=== PATIENT | male | born 1950 | race Hispanic/Latino ===

== ENCOUNTER 2017-10-27 06:34 | Day surgery (SDC) | payer BC ==
[2017-10-26 15:49] VITALS: BP 137/83
[~2017-10-27] VITALS: Ht 175.3 cm; Wt 102.4 kg
[2017-10-27] VITALS (17 sets, daily range): BP systolic 98–153; BP diastolic 56–100
[2017-10-27] MEDS: CEFAZOLIN SODIUM 1 GM VIAL IVP SCH ×2 (06:30→08:35)
[~2017-10-27 06:34] MED LIST: ALFU10 PO; ATOR10TA69 PO; METO-391 PO; OLME20TA10 PO; PANT40TA25 PO; TRAM50TA4 PO
[2017-10-27] MEDS ORDERED: MIDAZOLAM HCL 1 MG/ML 2ML VIAL ONE (06:49)
[2017-10-27] MEDS ORDERED: LIDOCAINE PF 2% 5ML ABBOJECT ONE (06:49)
[2017-10-27] MEDS ORDERED: PROPOFOL 10 MG/ML 20ML VIAL IV ONE ×2 (06:49→08:50)
[2017-10-27] MEDS ORDERED: NEOSTIGMINE 5MG/5ML SYR IV ONE (06:49)
[2017-10-27] MEDS ORDERED: GLYCOPYRROLATE 0.2 MG/ML 5 ML VIAL ONE ×2 (06:49→09:08)
[2017-10-27] MEDS ORDERED: DEXAMETHASONE SOD PHOSPHATE 10MG/ML 1ML VIAL ONE (06:49)
[2017-10-27] MEDS ORDERED: FENTANYL CITRATE PF 50 MCG/1 ML 2ML VIAL ONE ×2 (06:49→08:49)
[2017-10-27] MEDS ORDERED: LACTATED RINGERS 1000ML 1,000 ML IV ONE (07:05)
[2017-10-27] MEDS ORDERED: CALDOLOR 800MG+NS 250ML 250 ML IV ONE (07:54)
[2017-10-27] MEDS ORDERED: EPHEDRINE SULFATE 50 MG/ML AMPULE ONE (08:34)
[2017-10-27] MEDS ORDERED: ROCURONIUM BROMIDE 10MG/1ML 5ML VL ONE (09:07)
[2017-10-27] MEDS ORDERED: METOCLOPRAMIDE 10 MG/2 ML VIAL ONE (09:07)
[2017-10-27] MEDS ORDERED: ONDANSETRON HCL MDV 20ML 2 MG/ML VIAL ONE (09:07)
[2017-10-27] MEDS ORDERED: SUCCINYLCHOLINE CHLORIDE 20 MG/ML 10 ML VIAL ONE ×2 (09:07)
[2017-10-27] MEDS ORDERED: LIDOCAINE HCL 4% LTA SOL 4 ML VIAL ONE (09:08)
[2017-10-27] MEDS ORDERED: PHENYLEPHRINE HCL 10 MG/ML 1ML VIAL IV ONE (09:08)
[2017-10-27] MEDS ORDERED: MEPERIDINE-PF 25 MG/ML SYG ONE ×2 (09:35→09:49)
== END 2017-10-27 11:05 | disposition home or self-care (01) ==
LOC: DAH 06:34
PROVIDERS: ATTEND Orthopaedic Surgery
DX: M23.222 Derangement of posterior horn of medial meniscus due to old tear or injury, left knee (principal); M67.52 Plica syndrome, left knee; M22.42 Chondromalacia patellae, left knee; M17.12 Unilateral primary osteoarthritis, left knee; Z79.82 Long term (current) use of aspirin; Z79.899 Other long term (current) drug therapy; I10 Essential (primary) hypertension; G47.30 Sleep apnea, unspecified; E78.00 Pure hypercholesterolemia, unspecified; F41.8 Other specified anxiety disorders; K21.9 Gastro-esophageal reflux disease without esophagitis; Z90.49 Acquired absence of other specified parts of digestive tract; I25.10 Atherosclerotic heart disease of native coronary artery without angina pectoris; Z98.890 Other specified postprocedural states
CPT/HCPCS: 29881; A4218; A4606; A4649 ×2; A4930; A6223; J0330 ×2; J0690; J1100; J1741; J2001; J2175 ×2; J2250; J2370; J2704 ×2; J2710; J2765; J3010 ×2; J3490 ×4; J7030; J7120

== ENCOUNTER → 2020-12-28 | Outpatient (CLI) | payer MEDICARE ==
[~2020-12-28] MED LIST changes: +AMLO-257 PO; +DULO60CA64 PO; +ESCI-8 PO; +GABA-529 PO; +LINA290C PO; +MELO-108 PO; +MONT10TA32 PO; -PANT40TA25 PO; +PANT40TA54 PO; +TOPI50TA PO; -TRAM50TA4 PO; +TRAZ-185 PO
== END | disposition home or self-care (01) ==
LOC: RAH 07:23
PROVIDERS: ATTEND Physical Medicine & Rehabilitation
DX: M47.26 Other spondylosis with radiculopathy, lumbar region (principal)
CPT/HCPCS: 72148

== ENCOUNTER → 2022-12-13 | Outpatient (CLI) | payer MEDICARE ==
[~2022-12-13] MED LIST changes: +MONT-39 PO; -MONT10TA32 PO; -OLME20TA10 PO; +OLME20TA73 PO
[2022-12-13 15:31] LABS: APPEARANCE BODY FLUID CLOUDY (CLEAR); COLOR,BODY FLUID YELLOW (LT YELLOW); SPECIMENTYPE,BODY FLUID SYNOVIAL; TOTAL VOLUME,BODY FLUID 60 mL
[2022-12-13 15:32] LABS: BODY FLUID RBC 1124 /cu. mm.; BODY FLUID WBC 90 /cu. mm.
[2022-12-13 16:15] LABS: BF LYMPHOCYTE 4 %; BF MONOCYTE 6 %; BF OTHER CELLS 3
[2022-12-13 19:32] LABS: CRYSTALS, SYNOVIAL FLUID None Seen
== END | disposition home or self-care (01) ==
LOC: LAB 12:41
PROVIDERS: ATTEND Nurse Practitioner
DX: M25.462 Effusion, left knee (principal)
CPT/HCPCS: 87070; 87076; 87077; 87186; 89051; 89060

== ENCOUNTER 2023-03-31 10:00 | Outpatient (CLI) | payer MEDICARE ==
[~2023-03-31] VITALS: Ht 172.7 cm; Wt 98.2 kg
[2023-03-31 11:06] LABS: APPEARANCE,URINE CLEAR (CLEAR); BILIRUBIN,URINE NEGATIVE (NEGATIVE); COLOR,URINE LIGHT-YELLOW (YELLOW); GLUCOSE, URINE (UA) NEGATIVE (NEGATIVE); KETONES,URINE NEGATIVE (NEGATIVE); LEUKOCYTE ESTERASE ,URINE NEGATIVE Leu/uL (NEGATIVE); NITRATE,URINE NEGATIVE (NEGATIVE); PH,URINE 6.5 (5.0-8.0); PROTEIN,URINE NEGATIVE (NEGATIVE); UROBILINOGEN,URINE 0.2 mg/dL (0.2-1.0)
[2023-03-31 11:07] LABS: ADD UA MICROSCOPIC YES
[2023-03-31 11:09] LABS: MUCUS,URINE RARE LPF (None Seen); SQUAMOUS EPITHELIAL CELL,UR RARE /HPF (0-2); WBC,URINE 0-1 /HPF (0-1)
[2023-03-31 11:15] LABS: INR < 0.93 (0.85-1.15); PROTHROMBIN TIME 10.7 SEC (9.6-11.6)
[2023-03-31 11:16] LABS: PARTIAL THROMBOPLASTIN TIME 27.9 SEC (26.3-35.5)
[2023-03-31 11:39] VITALS: BP 150/91; PULSE 68; RESP 16
[2023-03-31] MEDS ORDERED: GABA-529 PO (14:17)
[2023-03-31] MEDS ORDERED: TOPI50CA PO (14:17)
[2023-03-31] MEDS ORDERED: MELO-106 PO (14:17)
[2023-03-31] MEDS ORDERED: METF-444 PO (14:17)
[2023-03-31] MEDS ORDERED: LINA290C PO (14:17)
[2023-03-31] MEDS ORDERED: OLME40TA18 PO (14:17)
[2023-03-31] MEDS ORDERED: TRAZ-185 PO (14:17)
[2023-03-31] MEDS ORDERED: DULO60CA64 PO (14:17)
[2023-03-31] MEDS ORDERED: SUCR1TAB2 PO (14:17)
[2023-03-31] MEDS ORDERED: CYCL30DR OU (14:17)
[2023-03-31] MEDS ORDERED: PANT40TA54 PO (14:17)
[2023-03-31] MEDS ORDERED: METO25TA6 PO (14:17)
[2023-03-31] MEDS ORDERED: ATOR10TA69 PO (14:17)
[2023-03-31] MEDS ORDERED: DUTA0.5C37 PO (14:17)
[2023-03-31] MEDS ORDERED: FLUT16H NASAL (14:17)
[2023-04-03] VITALS (17 sets, daily range): BP systolic 107–179; BP diastolic 66–112; PULSE 62–84; RESP 10–18
[2023-04-03] MEDS ORDERED: CEFAZOLIN SODIUM 2 GM VIAL ONE (06:19)
[2023-04-03] MEDS ORDERED: 0.9%NACL 1000ML 1,000 ML IV ONE (06:19)
[2023-04-03] MEDS ORDERED: LIDOCAINE PF 100MG/5ML (2%) SYRINGE 5ML ONE (06:41)
[2023-04-03] MEDS ORDERED: DEXAMETHASONE SOD PHOSPHATE 10MG/ML 1ML VIAL ONE (06:41)
[2023-04-03] MEDS ORDERED: SUCCINYLCHOLINE CHLORIDE 20 MG/ML 10 ML VIAL ONE (06:41)
[2023-04-03] MEDS ORDERED: FENTANYL CITRATE PF 50 MCG/1 ML 5ML AMP IV ONE (06:42)
[2023-04-03] MEDS ORDERED: ONDANSETRON 4MG INJ ONE ×2 (06:42→09:56)
[2023-04-03] MEDS ORDERED: GLYCOPYRROLATE 1 MG/5 ML SYRINGE ONE (06:42)
[2023-04-03] MEDS ORDERED: PROPOFOL 10 MG/ML 20ML VIAL IV ONE (06:42)
[2023-04-03] MEDS ORDERED: NEOSTIGMINE 5MG/5ML SYR IV ONE (06:42)
[2023-04-03] MEDS ORDERED: ROCURONIUM 10MG/1ML SYR 10 MG/ML ML ONE ×2 (06:42→07:57)
[2023-04-03] MEDS ORDERED: MIDAZOLAM HCL 1 MG/ML 2ML VIAL ONE (06:55)
[2023-04-03] MEDS ORDERED: ROPIVACAINE 0.5% 5MG/ML 30ML IJ ONE (07:04)
[2023-04-03] MEDS ORDERED: MORPHINE PF 100MG/10ML AMP IV ONE (07:04)
[2023-04-03] MEDS ORDERED: TRANEXAMIC ACID 1000MG/10ML ONE (07:16)
[2023-04-03] MEDS ORDERED: EPHEDRINE SULFATE 50 MG/ML AMPULE ONE (07:51)
[2023-04-03] MEDS ORDERED: FENTANYL CITRATE PF 50 MCG/1 ML 2ML VIAL ONE (08:18)
[2023-04-03] MEDS ORDERED: BUPIVACAINE/PF 0.5% 30ML VIAL ONE (08:30)
[2023-04-03] MEDS ORDERED: KETOROLAC 30MG VIAL (30MG/ML) ONE ×2 (08:30→11:56)
[2023-04-03] MEDS ORDERED: MEPERIDINE-PF 25 MG/ML SYG ONE ×2 (09:57→10:10)
[2023-04-03] MEDS ORDERED: KETOROLAC 15MG/ML VIAL (15MG/ML) ONE (10:10)
[2023-04-03] MEDS ORDERED: HYDRALAZINE 20MG/ML VIAL ONE (10:18)
[2023-04-03] MEDS ORDERED: KETOROLAC 15MG/ML VIAL (15MG/ML) IM SCH (11:30)
[2023-04-03] MEDS ORDERED: HYDROCODONE/ACETAMINOPHEN 10/325 MG TAB PO PRN (11:30)
[2023-04-03] MEDS ORDERED: HYDROCODONE/ACETAMINOPHEN 5/325 MG TAB PO PRN (11:30)
[2023-04-20] MEDS ORDERED: 0.9% NACL 250ML 250 ML ONE (21:06)
== END 2023-03-31 12:00 | disposition home or self-care (01) ==
LOC: LAB 10:00 → DAH 10:00 → LAB 12:00 → DAH 04-03 05:51 → MERGE 04-03 05:51 → DAH 04-03 10:00 → EDSTATUS 04-03 14:05
PROVIDERS: ATTEND Student in an Organized Health Care Education/Training Program
DX: Z01.812 Encounter for preprocedural laboratory examination (principal); M17.12 Unilateral primary osteoarthritis, left knee; M25.462 Effusion, left knee; M25.562 Pain in left knee; Z79.899 Other long term (current) drug therapy
CPT/HCPCS: 36415; 81001; 82040; 82948; 84134; 85610; 85730; 86140; 87088; 87641; 93005; J0330; J0360; J1100; J1885; J2001; J2175; J2250; J2274; J2405; J2704; J2710; J2795; J3010; J3490; J7030; A4215; A4221; A4222; A4223; A4663; A5120; J0690

== ENCOUNTER 2023-04-03 05:51 | Observation (INO) | payer MEDICARE ==
[2023-04-03] VITALS (12 sets, daily range): BP systolic 128–163; BP diastolic 68–93; PULSE 75–91; RESP 18; O2SAT 96–97
[~2023-04-03] VITALS: Ht 172.7 cm; Wt 97.2 kg
[~2023-04-03 05:51] MED LIST changes: +CYCL30DR OU; +DUTA0.5C37 PO; +FLUT16H NASAL; +MELO-106 PO; +METF-444 PO; +METO25TA6 PO; +OLME40TA18 PO; +SUCR1TAB2 PO; +TOPI50CA PO
[2023-04-03] MEDS ORDERED: BUPIVACAINE/PF 0.5% 30ML VIAL INJ ONE (08:46)
[2023-04-03] MEDS ORDERED: KETOROLAC 30MG VIAL (30MG/ML) IJ ONE (08:47)
[2023-04-03] MEDS ORDERED: FERROUS FUMARATE 324 MG TABLET PO PRN (09:30)
[2023-04-03] MEDS ORDERED: ONDANSETRON 4MG INJ IVP PRN (09:30)
[2023-04-03] MEDS ORDERED: POTASSIUM CHLORIDE 20MEQ/100ML 100 ML IV PRN (09:30)
[2023-04-03] MEDS ORDERED: CALCIUM CARB 500MG PO PRN (09:30)
[2023-04-03] MEDS ORDERED: POTASSIUM CHLORIDE 10% ELIXIR 20 MEQ/15 ML UDCUP PO PRN (09:30)
[2023-04-03] MEDS: INSULIN HUMULIN R 100 UNIT/ML 3ML SQ SCH ×3 (11:30→20:09)
[2023-04-03] MEDS: KETOROLAC 15MG/ML VIAL (15MG/ML) IV SCH ×2 (12:30→17:17)
[2023-04-03] MEDS: HYDROCODONE/ACETAMINOPHEN 5/325 MG TAB PO PRN ×2 (12:35→20:06)
[2023-04-03] MEDS: 0.9%NACL 1000ML 1,000 ML IV SCH ×2 (12:47→20:09)
[2023-04-03] MEDS ORDERED: METF-444 PO ×2 (13:18)
[2023-04-03] MEDS ORDERED: METO25TA6 PO ×2 (13:27)
[2023-04-03] MEDS ORDERED: SUCR1TAB2 PO ×2 (13:27)
[2023-04-03] MEDS ORDERED: OLME40TA18 PO ×2 (13:27)
[2023-04-03] MEDS ORDERED: DUTA0.5C37 PO ×2 (13:27)
[2023-04-03] MEDS: GABAPENTIN 100 MG CAPSULE PO SCH ×2 (13:44→20:01)
[2023-04-03] MEDS: CEFAZOLIN SODIUM 2 GM VIAL IVPB SCH ×2 (17:17→22:24)
[2023-04-03] MEDS: CYCLOBENZAPRINE HCL 10 MG TABLET PO PRN (17:17)
[2023-04-03] MEDS: ATORVASTATIN 10 MG TABLET PO SCH (20:01)
[2023-04-03] MEDS: TOPIRAMATE 25 MG TABLET PO SCH (20:02)
[2023-04-03] MEDS: DOCUSATE SODIUM 100 MG CAP PO SCH (20:02)
[2023-04-03] MEDS: (Linaclotide (Linzess) 290 MCG) PO SCH (20:09)
[2023-04-03] MEDS: TRAZODONE HCL 50 MG TAB PO SCH (21:22)
[2023-04-04] VITALS (8 sets, daily range): BP systolic 143–189; BP diastolic 80–97; PULSE 77–94; RESP 18–20; O2SAT 93
[2023-04-04] MEDS: KETOROLAC 15MG/ML VIAL (15MG/ML) IV SCH (00:40)
[2023-04-04] MEDS: 0.9%NACL 1000ML 1,000 ML IV SCH (02:30)
[2023-04-04] MEDS: HYDROCODONE/ACETAMINOPHEN 5/325 MG TAB PO PRN ×3 (03:34→15:40)
[2023-04-04 03:55] LABS: HEMATOCRIT 40.6 % (42-54); MEAN CORPUSCULAR HEMOGLOBIN 30.5 pg (27.0-33.0); MEAN CORPUSCULAR HGB CONC 33.3 g/dL (32.0-36.0); MEAN CORPUSCULAR VOLUME 91.9 fL (79-99); RED BLOOD CELL COUNT(AUTO) 4.42 MIL/uL (4.50-6.20); RED CELL DISTRIBUTION WIDTH 13.1 % (11.0-15.5); WHITE BLOOD COUNT (AUTO) 14.9 K/uL (4.8-10.8)
[2023-04-04 04:10] LABS: POTASSIUM 3.4 mmol/L (3.5-5.1)
[2023-04-04] MEDS: KCL 20 MEQ ERTAB PO PRN ×2 (04:45→08:38)
[2023-04-04] MEDS: INSULIN HUMULIN R 100 UNIT/ML 3ML SQ SCH ×4 (05:28→20:46)
[2023-04-04] MEDS: CYCLOBENZAPRINE HCL 10 MG TABLET PO PRN ×2 (06:44→17:17)
[2023-04-04] MEDS: PANTOPRAZOLE 40 MG TAB DR PO SCH (08:37)
[2023-04-04] MEDS: ASPIRIN 325MG TAB PO SCH (08:37)
[2023-04-04] MEDS: GABAPENTIN 100 MG CAPSULE PO SCH ×3 (08:37→19:53)
[2023-04-04] MEDS: DOCUSATE SODIUM 100 MG CAP PO SCH ×2 (08:37→19:53)
[2023-04-04] MEDS: POLYETHYLENE GLYCOL 3350 17 GM POWD.PACK PO SCH (08:37)
[2023-04-04] MEDS: METFORMIN HCL 500 MG TABLET PO SCH (08:38)
[2023-04-04] MEDS: KETOROLAC 15MG/ML VIAL (15MG/ML) IV PRN ×2 (08:39→19:55)
[2023-04-04] MEDS: SUCRALFATE 1 GM TABLET PO SCH (19:52)
[2023-04-04] MEDS: METOPROLOL TARTRATE 25 MG TAB PO SCH (19:52)
[2023-04-04] MEDS: TOPIRAMATE 25 MG TABLET PO SCH (19:52)
[2023-04-04] MEDS: ATORVASTATIN 10 MG TABLET PO SCH (19:53)
[2023-04-04] MEDS: TRAZODONE HCL 50 MG TAB PO SCH (19:53)
[2023-04-04] MEDS: DULOXETINE HCL 30 MG CAP PO SCH (19:53)
[2023-04-04] MEDS: (Linaclotide (Linzess) 290 MCG) PO SCH (20:46)
[2023-04-04] MEDS: Olmesartan Medoxomil 40 MG PO SCH (20:46)
[2023-04-04] MEDS ORDERED: NON-FORMULARY MEDICATION 1 EACH (Duloxetine HCl 60 MG) PO SCH (21:00)
[2023-04-05] VITALS (7 sets, daily range): BP systolic 150–168; BP diastolic 79–94; PULSE 85–117; RESP 17–21
[2023-04-05] MEDS: HYDROCODONE/ACETAMINOPHEN 5/325 MG TAB PO PRN ×3 (00:52→19:08)
[2023-04-05] MEDS: CYCLOBENZAPRINE HCL 10 MG TABLET PO PRN ×2 (05:39→20:25)
[2023-04-05] MEDS: KCL 20 MEQ ERTAB PO PRN (05:41)
[2023-04-05] MEDS: INSULIN HUMULIN R 100 UNIT/ML 3ML SQ SCH ×4 (06:28→21:44)
[2023-04-05] MEDS: ASPIRIN 325MG TAB PO SCH (09:28)
[2023-04-05] MEDS: DOCUSATE SODIUM 100 MG CAP PO SCH ×2 (09:28→20:25)
[2023-04-05] MEDS: PANTOPRAZOLE 40 MG TAB DR PO SCH (09:28)
[2023-04-05] MEDS: SUCRALFATE 1 GM TABLET PO SCH ×2 (09:28→20:25)
[2023-04-05] MEDS: METFORMIN HCL 500 MG TABLET PO SCH (09:28)
[2023-04-05] MEDS: GABAPENTIN 100 MG CAPSULE PO SCH ×3 (09:28→20:26)
[2023-04-05] MEDS: POLYETHYLENE GLYCOL 3350 17 GM POWD.PACK PO SCH (09:28)
[2023-04-05] MEDS: TRAZODONE HCL 50 MG TAB PO SCH (20:25)
[2023-04-05] MEDS: ATORVASTATIN 10 MG TABLET PO SCH (20:25)
[2023-04-05] MEDS: METOPROLOL TARTRATE 25 MG TAB PO SCH (20:26)
[2023-04-05] MEDS: DULOXETINE HCL 30 MG CAP PO SCH (20:26)
[2023-04-05] MEDS: TOPIRAMATE 25 MG TABLET PO SCH (20:26)
[2023-04-05] MEDS: Olmesartan Medoxomil 40 MG PO SCH (21:00)
[2023-04-05] MEDS: (Linaclotide (Linzess) 290 MCG) PO SCH (21:00)
[2023-04-06] VITALS (7 sets, daily range): BP systolic 139–157; BP diastolic 82–93; PULSE 78–89; RESP 17–21; O2SAT 98
[2023-04-06] MEDS: HYDROCODONE/ACETAMINOPHEN 5/325 MG TAB PO PRN ×4 (03:20→20:55)
[2023-04-06 04:57] LABS: BASOPHILS # (AUTO) 0.07 K/uL (0.00-0.20); BASOPHILS % (AUTO) 0.5 % (0.0-5.0); EOSINOPHILS # (AUTO) 0.67 K/uL (0.00-0.70); EOSINOPHILS % (AUTO) 4.7 % (0.0-8.0); HEMATOCRIT 39.1 % (42-54); IMMATURE GRANULOCYTE ABSOLUTE 0.06 K/uL (0-1); LYMPHOCYTES # (AUTO) 2.1 K/uL (1.0-4.8); LYMPHOCYTES % (AUTO) 14.3 % (21.0-51.0); MEAN CORPUSCULAR HEMOGLOBIN 31.1 pg (27.0-33.0); MEAN CORPUSCULAR HGB CONC 34.5 g/dL (32.0-36.0); MEAN CORPUSCULAR VOLUME 90.1 fL (79-99); MONOCYTES # (AUTO) 1.3 K/uL (0.1-1.0); MONOCYTES % (AUTO) 9.1 % (3.0-13.0); NEUTROPHILS # (AUTO) 10.2 K/uL (1.8-7.7); PLATELET COUNT (AUTO) 244 K/uL (130-400); RED BLOOD CELL COUNT(AUTO) 4.34 MIL/uL (4.50-6.20); RED CELL DISTRIBUTION WIDTH 12.6 % (11.0-15.5); WHITE BLOOD COUNT (AUTO) 14.4 K/uL (4.8-10.8)
[2023-04-06] MEDS: INSULIN HUMULIN R 100 UNIT/ML 3ML SQ SCH ×4 (05:17→21:00)
[2023-04-06] MEDS: KCL 20 MEQ ERTAB PO PRN ×2 (06:33→10:41)
[2023-04-06] MEDS ORDERED: BISACODYL 10 MG SUPP.RECT RC PRN (09:30)
[2023-04-06] MEDS: SUCRALFATE 1 GM TABLET PO SCH ×2 (10:40→20:49)
[2023-04-06] MEDS: METFORMIN HCL 500 MG TABLET PO SCH (10:40)
[2023-04-06] MEDS: POLYETHYLENE GLYCOL 3350 17 GM POWD.PACK PO SCH (10:40)
[2023-04-06] MEDS: ASPIRIN 325MG TAB PO SCH (10:40)
[2023-04-06] MEDS: GABAPENTIN 100 MG CAPSULE PO SCH ×3 (10:41→20:50)
[2023-04-06] MEDS: PANTOPRAZOLE 40 MG TAB DR PO SCH (10:41)
[2023-04-06] MEDS: DOCUSATE SODIUM 100 MG CAP PO SCH ×2 (10:41→20:49)
[2023-04-06] MEDS: TOPIRAMATE 25 MG TABLET PO SCH (20:49)
[2023-04-06] MEDS: DULOXETINE HCL 30 MG CAP PO SCH (20:49)
[2023-04-06] MEDS: TRAZODONE HCL 50 MG TAB PO SCH (20:50)
[2023-04-06] MEDS: METOPROLOL TARTRATE 25 MG TAB PO SCH (20:50)
[2023-04-06] MEDS: ATORVASTATIN 10 MG TABLET PO SCH (20:50)
[2023-04-06] MEDS: Olmesartan Medoxomil 40 MG PO SCH (21:02)
[2023-04-06] MEDS: (Linaclotide (Linzess) 290 MCG) PO SCH (21:02)
[2023-04-07] MEDS: HYDROCODONE/ACETAMINOPHEN 5/325 MG TAB PO PRN ×4 (02:03→20:20)
[2023-04-07 04:16] VITALS: BP 144/86; PULSE 89; RESP 21
[2023-04-07] MEDS: INSULIN HUMULIN R 100 UNIT/ML 3ML SQ SCH ×4 (07:30→20:21)
[2023-04-07] MEDS: POLYETHYLENE GLYCOL 3350 17 GM POWD.PACK PO SCH (07:58)
[2023-04-07] MEDS: METFORMIN HCL 500 MG TABLET PO SCH (07:59)
[2023-04-07] MEDS: GABAPENTIN 100 MG CAPSULE PO SCH ×3 (07:59→20:20)
[2023-04-07] MEDS: DOCUSATE SODIUM 100 MG CAP PO SCH ×2 (07:59→20:16)
[2023-04-07] MEDS: ASPIRIN 325MG TAB PO SCH (07:59)
[2023-04-07 08:00] VITALS: BP 134/95; PULSE 89; RESP 20; O2SAT 98
[2023-04-07] MEDS: PANTOPRAZOLE 40 MG TAB DR PO SCH (08:01)
[2023-04-07] MEDS: SUCRALFATE 1 GM TABLET PO SCH ×2 (08:01→20:16)
[2023-04-07] MEDS: KCL 20 MEQ ERTAB PO PRN (08:01)
[2023-04-07 12:00] VITALS: BP 130/76; PULSE 62; RESP 20
[2023-04-07 16:00] VITALS: BP 170/94; PULSE 77; RESP 20
[2023-04-07 20:00] VITALS: BP 159/93; PULSE 88; RESP 20
[2023-04-07] MEDS: ATORVASTATIN 10 MG TABLET PO SCH (20:16)
[2023-04-07] MEDS: TOPIRAMATE 25 MG TABLET PO SCH (20:16)
[2023-04-07] MEDS: TRAZODONE HCL 50 MG TAB PO SCH (20:16)
[2023-04-07] MEDS: DULOXETINE HCL 30 MG CAP PO SCH (20:16)
[2023-04-07] MEDS: METOPROLOL TARTRATE 25 MG TAB PO SCH (20:16)
[2023-04-07] MEDS: Olmesartan Medoxomil 40 MG PO SCH (20:32)
[2023-04-07] MEDS: (Linaclotide (Linzess) 290 MCG) PO SCH (20:33)
[2023-04-07 20:34] VITALS: O2SAT 98
[2023-04-08] VITALS (7 sets, daily range): BP systolic 136–168; BP diastolic 79–91; PULSE 75–95; RESP 18–20; O2SAT 96–98
[2023-04-08] MEDS: HYDROCODONE/ACETAMINOPHEN 5/325 MG TAB PO PRN ×4 (02:12→18:30)
[2023-04-08] MEDS: INSULIN HUMULIN R 100 UNIT/ML 3ML SQ SCH ×4 (06:38→20:16)
[2023-04-08] MEDS: GABAPENTIN 100 MG CAPSULE PO SCH ×3 (08:02→20:17)
[2023-04-08] MEDS: METFORMIN HCL 500 MG TABLET PO SCH (08:02)
[2023-04-08] MEDS: POLYETHYLENE GLYCOL 3350 17 GM POWD.PACK PO SCH (08:02)
[2023-04-08] MEDS: ASPIRIN 325MG TAB PO SCH (08:02)
[2023-04-08] MEDS: DOCUSATE SODIUM 100 MG CAP PO SCH ×2 (08:02→20:14)
[2023-04-08] MEDS: SUCRALFATE 1 GM TABLET PO SCH ×2 (08:02→20:14)
[2023-04-08] MEDS: PANTOPRAZOLE 40 MG TAB DR PO SCH (08:02)
[2023-04-08] MEDS: ATORVASTATIN 10 MG TABLET PO SCH (20:14)
[2023-04-08] MEDS: TRAZODONE HCL 50 MG TAB PO SCH (20:14)
[2023-04-08] MEDS: TOPIRAMATE 25 MG TABLET PO SCH (20:14)
[2023-04-08] MEDS: METOPROLOL TARTRATE 25 MG TAB PO SCH (20:14)
[2023-04-08] MEDS: DULOXETINE HCL 30 MG CAP PO SCH (20:15)
[2023-04-08] MEDS: (Linaclotide (Linzess) 290 MCG) PO SCH (20:16)
[2023-04-08] MEDS: Olmesartan Medoxomil 40 MG PO SCH (20:16)
[2023-04-09] VITALS (7 sets, daily range): BP systolic 146–165; BP diastolic 63–85; PULSE 77–85; RESP 17–20; O2SAT 94–100
[2023-04-09] MEDS: HYDROCODONE/ACETAMINOPHEN 5/325 MG TAB PO PRN ×4 (01:35→18:15)
[2023-04-09] MEDS: INSULIN HUMULIN R 100 UNIT/ML 3ML SQ SCH ×4 (06:27→21:08)
[2023-04-09] MEDS: PANTOPRAZOLE 40 MG TAB DR PO SCH (09:34)
[2023-04-09] MEDS: DOCUSATE SODIUM 100 MG CAP PO SCH ×2 (09:34→21:06)
[2023-04-09] MEDS: ASPIRIN 325MG TAB PO SCH (09:34)
[2023-04-09] MEDS: POLYETHYLENE GLYCOL 3350 17 GM POWD.PACK PO SCH (09:34)
[2023-04-09] MEDS: METFORMIN HCL 500 MG TABLET PO SCH (09:34)
[2023-04-09] MEDS: SUCRALFATE 1 GM TABLET PO SCH ×2 (09:34→21:06)
[2023-04-09] MEDS: GABAPENTIN 100 MG CAPSULE PO SCH ×3 (09:35→21:06)
[2023-04-09] MEDS ORDERED: HYDROCORTISONE 1% CREAM 28G TP PRN (11:00)
[2023-04-09] MEDS: TOPIRAMATE 25 MG TABLET PO SCH (21:06)
[2023-04-09] MEDS: DULOXETINE HCL 30 MG CAP PO SCH (21:06)
[2023-04-09] MEDS: ATORVASTATIN 10 MG TABLET PO SCH (21:06)
[2023-04-09] MEDS: METOPROLOL TARTRATE 25 MG TAB PO SCH (21:06)
[2023-04-09] MEDS: TRAZODONE HCL 50 MG TAB PO SCH (21:06)
[2023-04-09] MEDS: Olmesartan Medoxomil 40 MG PO SCH (21:16)
[2023-04-09] MEDS: (Linaclotide (Linzess) 290 MCG) PO SCH (21:16)
[2023-04-10] VITALS: BP 145/89; PULSE 69; RESP 18
[2023-04-10] MEDS: HYDROCODONE/ACETAMINOPHEN 5/325 MG TAB PO PRN ×3 (04:03→15:00)
[2023-04-10 04:14] VITALS: BP 157/88; PULSE 73; RESP 20
[2023-04-10] MEDS: INSULIN HUMULIN R 100 UNIT/ML 3ML SQ SCH ×2 (06:44→11:30)
[2023-04-10 07:41] VITALS: BP 150/95; PULSE 67; RESP 16
[2023-04-10 08:00] VITALS: O2SAT 98
[2023-04-10] MEDS: SUCRALFATE 1 GM TABLET PO SCH (10:02)
[2023-04-10] MEDS: ASPIRIN 325MG TAB PO SCH (10:02)
[2023-04-10] MEDS: DOCUSATE SODIUM 100 MG CAP PO SCH (10:02)
[2023-04-10] MEDS: POLYETHYLENE GLYCOL 3350 17 GM POWD.PACK PO SCH (10:02)
[2023-04-10] MEDS: PANTOPRAZOLE 40 MG TAB DR PO SCH (10:02)
[2023-04-10] MEDS: METFORMIN HCL 500 MG TABLET PO SCH (10:02)
[2023-04-10] MEDS: GABAPENTIN 100 MG CAPSULE PO SCH ×2 (10:05→14:59)
[2023-04-10 11:04] VITALS: BP 163/88; PULSE 71; RESP 18
== END 2023-04-10 16:15 ==
LOC: DAH 05:51 → DAHIP 05:52 → 4DH 11:34
PROVIDERS: ADMIT Student in an Organized Health Care Education/Training Program; ATTEND Student in an Organized Health Care Education/Training Program
DX: M17.12 Unilateral primary osteoarthritis, left knee (principal); D62 Acute posthemorrhagic anemia; G89.18 Other acute postprocedural pain; I10 Essential (primary) hypertension; M79.7 Fibromyalgia; E78.00 Pure hypercholesterolemia, unspecified; E66.9 Obesity, unspecified; K21.9 Gastro-esophageal reflux disease without esophagitis; F41.9 Anxiety disorder, unspecified; E11.9 Type 2 diabetes mellitus without complications; Z79.899 Other long term (current) drug therapy
CPT/HCPCS: 64447; 27447; 96365; 96366; 96375; 82948 ×29; 73560; 97161; 97039 ×18; 97116 ×15; 93005; 96376; 80048; 85027; 36415 ×3; 84132 ×2; 85025; 97530 ×6; G0378 ×174; A4663; A4215 ×2; A4649 ×4; J3010 ×2; J3490 ×5; J1100; J2710; J0330; J7030; J2001; J0360; J2704; J2274; J2405 ×4; J1885 ×8; J2175 ×2; J2795; J0690 ×3; G0168; A4930; C1713; C1776; A6255; A5120; A4223; A4222; A4221; J1815 ×2; 81001; 82040; 84134; 85610; 85730; 86140; 87088; 87641; J2250

== ENCOUNTER 2024-07-29 08:08 | Inpatient (IN) | payer MEDICARE ==
[2024-07-24 11:11] VITALS: BP 139/75; PULSE 67; RESP 18; TEMP 97.8
--- NOTE | 2024-07-24 14:34 | NUR ---
report pt reported he is schedule for colonoscopy on monday. dr mccartney made aware and ok to proceed
[2024-07-29] VITALS (31 sets, daily range): BP systolic 122–199; BP diastolic 67–89; PULSE 60–93; RESP 14–20; TEMP 97.1–98.2; O2SAT 95
[~2024-07-29] VITALS: Ht 172.7 cm; Wt 98.9 kg
[~2024-07-29 08:08] MED LIST changes: -ALFU10 PO; -AMLO-257 PO; -DUTA0.5C37 PO; -ESCI-8 PO; -FLUT16H NASAL; +FLUT1BLS3 PO; -MELO-108 PO; -METO-391 PO; -MONT-39 PO; -OLME20TA73 PO; +TOPI-97 PO; -TOPI50CA PO; -TOPI50TA PO
[2024-07-29] MEDS: 0.9%NACL 1000ML 1,000 ML IV ONE (09:27)
[2024-07-29] MEDS: ceFAZolin SODIUM 2 GM VIAL ONE (09:28)
[2024-07-29] MEDS: FAMOTIDINE 20MG VIAL IV ONE (09:43)
[2024-07-29] MEDS: acetaMINOPHEN 100 ML ONE (09:43)
[2024-07-29] MEDS ORDERED: ROPivacaine 0.5% 5MG/ML 30ML ONE (09:45)
[2024-07-29] MEDS ORDERED: ketaMINE 50MG/ML SYRINGE 50 MG/ML DISP.SYRIN ONE (09:45)
[2024-07-29] MEDS ORDERED: proPOFol 10 MG/ML 20ML VIAL IV ONE (09:49)
[2024-07-29] MEDS ORDERED: LIDOCAINE PF 100MG/5ML (2%) SYRINGE 5ML ONE (09:49)
[2024-07-29] MEDS ORDERED: FENTanyl CITRate PF 50 MCG/1 ML 2ML VIAL ONE (09:49)
[2024-07-29] MEDS ORDERED: rocuRONium bROMide 10MG/1ML 5ML VL ONE ×2 (09:49→11:16)
[2024-07-29] MEDS ORDERED: dexaMETHasone SOD PHOSPHATE 10MG/ML 1ML VIAL ONE (10:23)
[2024-07-29] MEDS ORDERED: ondanSETRON 4MG INJ ONE (10:23)
[2024-07-29] MEDS ORDERED: FERROUS FUMARATE 324 MG TABLET PO PRN ×2 (10:30→15:00)
[2024-07-29] MEDS: 0.9%NACL 1000ML 1,000 ML IV SCH (10:30)
[2024-07-29] MEDS: TRANEXAMIC ACID 1000MG/10ML ONE ×2 (10:30→12:55)
[2024-07-29] MEDS ORDERED: ePHEDrine SULFate 50 MG/ML AMPULE ONE (10:47)
[2024-07-29] MEDS: ketOROlac 30MG VIAL (30MG/ML) ONE (11:19)
[2024-07-29] MEDS: ROPivacaine 0.5% 5MG/ML 30ML ONE (11:19)
--- NOTE | 2024-07-29 13:05 | OP ---
Operative Note: DATE OF PROCEDURE: 07/29/24 PREOPERATIVE DIAGNOSIS: Right knee osteoarthritis. POSTOPERATIVE DIAGNOSIS: Right knee osteoarthritis. PROCEDURE PERFORMED: Right knee total knee arthroplasty. SURGEON: Izabel Santos MD REGIONAL WILDLIFE AGENT: Inés Orozco. ANESTHESIA: General with adductor canal block. ANESTHESIA: MALINI Deng. ESTIMATED BLOOD LOSS: 50cc. COMPLICATIONS: None. DRAINS: None. SPECIMENS REMOVED: resected bone. Not sent to pathology. IMPLANTS: [employer] II BCS size 7 Oxinium femur, size 6 tibial base plate, 35 mm patella, 11 mm polyethylene STATEMENT OF MEDICAL NECESSITY: The patient is a 73-year-old male who suffers from right knee osteoarthritis failing conservative management. After discussion of the risks, benefits, and alternatives with the patient, they voluntarily agreed to undergo the aforementioned procedure. DESCRIPTION OF PROCEDURE: Patient was properly identified in the preoperative holding area. Surgical site marking was verified and surgery consent reviewed. The patient was then taken to the operating room and placed in supine position on the OR table. After induction of general anesthesia, preoperative antibiotics were given, all bony prominences were well-padded, and a well padded tourniquet was applied but not inflated at this time. The right lower extremity was then prepped and draped in usual sterile fashion. Surgical time out was done verifying correct surgery, side, site, and location to be performed. We then began the procedure by exsanguinating the limb using an Esmarch and inflating the tourniquet to 350 mmHg. At this point, we made an anterior midline incision using a 10 blade, coming down sharply the level of the fascia. Skin flaps were elevated medially and laterally. We then obtained a clean 10 blade and performed a standard medial parapatellar arthrotomy. We excised the infrapatellar fat pad. We performed our soft tissue releases off of the tibia. We transected the ACL and removed the anterior portion of the medial & lateral meniscus. We then brought the knee into hyperflexion with the patella everted. We used our entry reamer to enter the femoral canal. We then placed our intramedullary cutting guide for our distal femoral cutting block. We then performed our distal femoral osteotomy ensuring appropriate rotation and removed the bony wafer. We then removed these pins and block and then used jig 2 to size the distal femur with the after mentioned size found. We then placed our 5-in-1 cutting block in 4.5 degrees of external rotation and took our 5 cuts ensuring to protect the patellar tendon and the collateral ligaments. We then removed the cutting block and our bony fragments using a curved osteotome. We then placed our PCL retractor subluxating the tibia anteriorly. Using an extra medullary tibial cutting guide, we hung the block for our proximal tibial cut taking 2 mm off the more diseased portion. Prior to pinning this block in place, we ensured appropriate varus/valgus alignment and posterior slope similar to the [place] slope of the patient's knee. We then performed our proximal tibial osteotomy and removed the bony wafer using Bovie electrocautery to release any remaining soft tissue attachments. We then used our tibial sizing paddle and checked once more for varus & valgus alignment and found this to be appropriate. At this point, we pinned our tibial paddle in place. We then removed the PCL retractor and subluxated the tibia posteriorly while we placed our femoral trial component. We then finished preparing the notch with the reamer and box chisel. The notch portion of the trial femoral component was then placed. A posterior stabilized polyethylene, size 9 trial was placed. The knee was then taken through range of motion and found to have stable full range of motion. We then placed a bump under the ankle and everted the patella to perform our freehand cut of the undersurface the patella. We then sized our patella and reamed to the lug holes for this. We placed our trial patellar component and begin to take the knee through range of motion. The patella had significant lateral tracking that improved after a lateral release. At this point we began removing our trial components and punched the tibial keel prior to removing our tibial trial component. Final components were opened and cement was mixed on the back table while we injected local cocktail in the posterior capsule. We then thoroughly irrigated out the bone and dried the bony surfaces. We cemented our tibial component in place ensuring to remove excess cement and placed our trial polyethylene. We then cemented our femoral component in place once again taking time to ensure excess cement was removed leg was brought into full extension to help squeeze the excess cement from around the femoral component. We then brought the knee back in a flexion to remove this portion of the cement at this point we placed the ankle in a bump thoroughly irrigated off the patellar component and cemented our patellar component in standard fashion again removing excess cement. While we waited for the cement to cure, we thoroughly irrigated out the wound with normal saline. Once our cement had cured, we took the knee through a range of motion and found full and stable range of motion. We then elected to use the size 11 polyethylene and removed our trial polyethylene. We impacted our final polyethylene component in place in standard fashion and took the knee through a range of motion check once more. This was satisfactory so we began to repair the arthrotomy using #1 Vicryl in interrupted [id number] fashion. Subcutaneous tissue was repaired using 2-0 Vicryl. Running subcuticular 3-0 Monocryl stitch with Dermabond placed over this for the skin. We then applied a foam barrier dressing and a pressure dressing consisting of 4 x 4's fluffs and an Michael wrap. The tourniquet was then deflated. Patient was awakened from anesthesia, and they were taken to the recovery room in stable condition. IZABEL SANTOS MD Jul 29, 2024 13:05
[2024-07-29] MEDS ORDERED: NEOSTIGMINE METHYLSULFATE 1MG/ML IV ONE (13:07)
[2024-07-29] MEDS ORDERED: GLYCOPYRROLATE 0.2 MG/ML 5 ML VIAL ONE (13:07)
[2024-07-29] MEDS: morPHINE 2 MG SYG ONE (14:05)
[2024-07-29] MEDS: ketOROlac 15MG/ML VIAL (15MG/ML) ONE (14:32)
[2024-07-29] MEDS ORDERED: PoTASSium chloRIDE 20MEQ/100ML 100 ML IV PRN (15:00)
[2024-07-29] MEDS ORDERED: ondanSETRON 4MG INJ IVP PRN (15:00)
[2024-07-29] MEDS ORDERED: PoTASSium chl 10% ELIXIR 20MEQ 20 MEQ/15 ML UDCUP PO PRN (15:00)
[2024-07-29] MEDS ORDERED: 0.9%NACL 1000ML 1,000 ML IV SCH (15:00)
[2024-07-29] MEDS ORDERED: ketOROlac 15MG/ML VIAL (15MG/ML) IV SCH (15:00)
[2024-07-29] MEDS ORDERED: CALCIUM CARB 500MG PO PRN (15:00)
[2024-07-29] MEDS ORDERED: ketOROlac 15MG/ML VIAL (15MG/ML) IV PRN (15:00)
[2024-07-29] MEDS ORDERED: PoTASSium chloRIDE 20MEQ ER 20 MEQ ERTAB PO PRN (15:00)
[2024-07-29] MEDS ORDERED: DiphenhydrAMINE HCL 50 MG/ML VIAL IVP PRN (15:00)
--- NOTE | 2024-07-29 15:10 | HMCIMG ---
KNEE/PATELLA 1-2VWS RT HISTORY: Postop COMPARISON: None TECHNIQUE: 2 images of right knee were obtained. FINDINGS: Total right knee replacement changes are seen. There is soft tissue swelling with soft tissue emphysema. There is no acute displaced fracture or dislocation. Degenerative changes are seen. IMPRESSION: 1. Findings as described above.
[2024-07-29] MEDS: INSULIN humuLIN R 100 UNIT/ML 3ML SQ SCH (16:30)
[2024-07-29] MEDS: ketOROlac 15MG/ML VIAL (15MG/ML) IV PRN (16:42)
[2024-07-29] MEDS: HYDROcodone/APAP 5/325 1 TAB TABLET PO PRN (18:42)
[2024-07-29] MEDS: topIRAMate 25 MG TABLET PO SCH (19:46)
[2024-07-29] MEDS: SUCRALFATE 1 GM TABLET PO SCH (19:46)
[2024-07-29] MEDS: trAZOdone HCL 50 MG TAB PO SCH (19:46)
[2024-07-29] MEDS: metFORmin HCL 500 MG TABLET PO SCH (19:46)
[2024-07-29] MEDS: doCUSate SODIUM 100 MG CAP PO SCH (19:46)
[2024-07-29] MEDS: PANTOPrazole 40 MG TAB DR PO SCH (19:46)
[2024-07-29] MEDS: atorVAStatin 10 MG TABLET PO SCH (19:46)
[2024-07-29] MEDS: CYCLOBENZAPRINE HCL 10 MG TABLET PO PRN (19:46)
[2024-07-29] MEDS: duloXETine HCL 30 MG CAP PO SCH (19:46)
[2024-07-29] MEDS: metoPROLOL tartRATE 25 MG TAB PO SCH (19:46)
[2024-07-29] MEDS: ASPIRIN 325MG TAB PO SCH (19:47)
[2024-07-29] MEDS: ceFAZolin SODIUM 2 GM VIAL IVPB SCH (19:47)
[2024-07-29] MEDS: ***HM***(Cyclosporine (Restasis) 1 EACH) OU SCH (19:48)
[2024-07-29] MEDS: OLMESARTAN MEDOXOMIL 40 MG PO SCH (19:48)
[2024-07-29] MEDS ORDERED: ceFAZolin SODIUM 1 GM VIAL IVP SCH (20:00)
[2024-07-29] MEDS: GABApentin 100 MG CAPSULE PO SCH (21:00)
[2024-07-29] MEDS ORDERED: ASPIRIN 325MG TAB PO SCH (21:00)
[2024-07-29] MEDS ORDERED: GABApentin 100 MG CAPSULE PO SCH (21:00)
[2024-07-30] VITALS (8 sets, daily range): BP systolic 140–169; BP diastolic 72–96; PULSE 69–77; RESP 16–20; TEMP 98–98.7; O2SAT 93–99
--- NOTE | 2024-07-30 01:02 | NUR ---
nursing pm note patient alert and oriented times 4. at bedside. plan of care discussed with them and they verbalized understanding. patient has been voiding via urinal tonight. He has had some severe right knee pain relieved by pain medication. He has slept intermittently about 3 hours tonight. Ice applied to his right knee via protocol. call light within reach, bed alarm on, 2 side rails up. will continue to monitor patient. will take patient to the chair in the am as ordered.
[2024-07-30 05:20] LABS: HEMATOCRIT 38.8 % (42-54); MEAN CORPUSCULAR HEMOGLOBIN 31.6 pg (27.0-33.0); MEAN CORPUSCULAR HGB CONC 34.3 g/dL (32.0-36.0); MEAN CORPUSCULAR VOLUME 92.2 fL (79-99); RED BLOOD CELL COUNT(AUTO) 4.21 MIL/uL (4.50-6.20); RED CELL DISTRIBUTION WIDTH 12.8 % (11.0-15.5); WHITE BLOOD COUNT (AUTO) 15.8 K/uL (4.8-10.8)
[2024-07-30 05:27] LABS: CREATININE 1.3 mg/dL (0.5-1.3)
--- NOTE | 2024-07-30 06:12 | NUR ---
chair patient's request was to sit on the chair between 0430 am to 06:00 am. After 6 am, he was tired of the chair and wanted to get back to bed. I explained that he needed to be on the chair for breakfast and physical therapy, but he refused. He says, "I promise I'll sit on the chair later, not right now." I took off his shawn bandage and applied another ice pack. Call light within reach, bed alarm on, 2 side rails up.
--- NOTE | 2024-07-30 08:04 | PN ---
Ortho postop day one. This morning patient is awake alert and oriented he is seated in bed but states that he has been sometime in a chair but got tired. States that he will return to chair after breakfast. Operative findings discussed with the patient. Vital signs have remained stable. Afebrile. Laboratory results reviewed. Noted to have a drop in hemoglobin and hematocrit as expected after total knee arthroplasty. Patient is currently asymptomatic and we will address per protocol as necessary. Voiding on his own without difficulty. Michael bandage his already been removed and the dressing to the anterior joint is intact. He has ice present to operative site. Alternating while seated extending and flexing his knee on footstool. Performing incentive spirometry as instructed with returned demonstration adequate. Patient did not ambulate yesterday with therapy but states that he has does stand to void and is pending further physical therapy. Patient had contralateral extremity TKA last year and went to [facility] rehab. He is hoping to go to [facility] again but I did explain that we will need to go through with the process and if not accepted may have to consider therapy in the home setting. We will defer to case management Assessment: Status post right total knee arthroplasty. Acute postoperative blood loss anemia. Plan: Continue with Dr. Santos's total knee arthroplasty protocol and discharge planning. Acute postoperative blood loss anemia addressed per protocol as necessary. Vitals/Labs Vital Signs Date Time Temp Pulse Resp B/P (MAP) Pulse Ox O2 Delivery O2 Flow Rate FiO2 07/30/24 07:58 98.1 69 20 141/72 100 Room Air 21 07/29/24 19:05 0 Laboratory Tests 07/30/24 05:00 Medications Current Medications Cefazolin Sodium 2 gm STK-MED ONCE .ROUTE Last administered on 07/29/24at 11:14; Start 07/29/24 at 08:34; Stop 07/29/24 at 08:35; Status DC Sodium Chloride 1,000 ml @ As Directed STK-MED ONCE IV Last administered on 07/29/24at 09:27; Start 07/29/24 at 08:34; Stop 07/29/24 at 08:35; Status DC Acetaminophen 100 ml @ As Directed STK-MED ONCE .ROUTE; Start 07/29/24 at 09:43; Stop 07/29/24 at 09:43; Status DC Famotidine 20 mg STK-MED ONCE IV; Start 07/29/24 at 09:43; Stop 07/29/24 at 09:43; Status DC Ropivacaine 150 mg STK-MED ONCE .ROUTE; Start 07/29/24 at 09:45; Stop 07/29/24 at 09:45; Status DC Ketamine HCl 50 mg STK-MED ONCE .ROUTE; Start 07/29/24 at 09:45; Stop 07/29/24 at 09:45; Status DC Lidocaine HCl 100 mg STK-MED ONCE .ROUTE; Start 07/29/24 at 09:49; Stop 07/29/24 at 09:49; Status DC Propofol 200 mg STK-MED ONCE IV; Start 07/29/24 at 09:49; Stop 07/29/24 at 09:49; Status DC Rocuronium [place] 50 mg STK-MED ONCE .ROUTE; Start 07/29/24 at 09:49; Stop 07/29/24 at 09:50; Status DC Fentanyl Citrate 100 mcg STK-MED ONCE .ROUTE; Start 07/29/24 at 09:49; Stop 07/29/24 at 09:50; Status DC Tranexamic Acid 1,000 mg STK-MED ONCE .ROUTE Last administered on 07/29/24at 12:55; Start 07/29/24 at 10:03; Stop 07/29/24 at 10:03; Status DC Tranexamic Acid 1,000 mg STK-MED ONCE .ROUTE Last administered on 07/29/24at 10:30; Start 07/29/24 at 10:03; Stop 07/29/24 at 10:03; Status DC Ketorolac Tromethamine 30 mg STK-MED ONCE .ROUTE Last administered on 07/29/24at 11:19; Start 07/29/24 at 10:16; Stop 07/29/24 at 10:16; Status DC Ropivacaine 150 mg STK-MED ONCE .ROUTE Last administered on 07/29/24at 11:19; Start 07/29/24 at 10:16; Stop 07/29/24 at 10:17; Status DC Ondansetron HCl 4 mg STK-MED ONCE .ROUTE; Start 07/29/24 at 10:23; Stop 07/29/24 at 10:24; Status DC Dexamethasone Sodium Phosphate 10 mg STK-MED ONCE .ROUTE; Start 07/29/24 at 10:23; Stop 07/29/24 at 10:24; Status DC Sodium Chloride 1,000 ml @ 100 mls/hr Q10H IV Last administered on 07/29/24at 23:34; Start 07/29/24 at 10:30; Stop 07/30/24 at 01:01; Status DC Polyethylene Glycol 17 gm DAILY PO; Start 07/30/24 at 09:00; Stop 08/29/24 at 08:59 Bisacodyl 10 mg DAILY PRN RC; Start 08/01/24 at 10:30; Stop 08/31/24 at 10:29 Aspirin 325 mg BID PO Last administered on 07/29/24at 19:47; Start 07/29/24 at 21:00; Stop 08/28/24 at 20:59 Ketorolac Tromethamine 15 mg Q6H PRN IV Last administered on 07/30/24at 03:09; Start 07/29/24 at 10:30; Stop 08/03/24 at 10:29 Ferrous Fumarate 324 mg DAILY PRN PO; Start 07/29/24 at 10:30; Stop 08/28/24 at 10:29 Ephedrine Sulfate 50 mg STK-MED ONCE .ROUTE; Start 07/29/24 at 10:47; Stop 07/29/24 at 10:47; Status DC Rocuronium [place] 50 mg STK-MED ONCE .ROUTE; Start 07/29/24 at 11:16; Stop 07/29/24 at 11:17; Status DC Glycopyrrolate 1 mg STK-MED ONCE .ROUTE; Start 07/29/24 at 13:07; Stop 07/29/24 at 13:07; Status DC Neostigmine Methylsulfate 10 mg STK-MED ONCE IV; Start 07/29/24 at 13:07; Stop 07/29/24 at 13:07; Status DC Morphine Sulfate 2 mg STK-MED ONCE .ROUTE Last administered on 07/29/24at 14:05; Start 07/29/24 at 14:02; Stop 07/29/24 at 14:02; Status DC Ketorolac Tromethamine 15 mg STK-MED ONCE .ROUTE Last administered on 07/29/24at 14:32; Start 07/29/24 at 14:28; Stop 07/29/24 at 14:29; Status DC Sodium Chloride 1,000 ml @ 100 mls/hr Q10H IV; Start 07/29/24 at 15:00; Stop 07/29/24 at 16:22; Status DC Polyethylene Glycol 17 gm DAILY PO; Start 07/30/24 at 09:00; Stop 07/29/24 at 16:23; Status DC Bisacodyl 10 mg DAILY PRN RC; Start 08/01/24 at 15:00; Stop 07/29/24 at 16:17; Status DC Aspirin 325 mg BID PO; Start 07/29/24 at 21:00; Stop 07/29/24 at 16:22; Status DC Ketorolac Tromethamine 15 mg Q6H PRN IV; Start 07/29/24 at 15:00; Stop 07/29/24 at 16:20; Status DC Ferrous Fumarate 324 mg DAILY PRN PO; Start 07/29/24 at 15:00; Stop 07/29/24 at 16:23; Status DC Ondansetron HCl 4 mg Q6H PRN IVP; Start 07/29/24 at 15:00; Stop 08/28/24 at 14:59 Calcium Carbonate 500 mg Q12H PRN PO; Start 07/29/24 at 15:00; Stop 08/28/24 at 14:59 Diphenhydramine HCl 25 mg Q6H PRN IVP; Start 07/29/24 at 15:00; Stop 08/28/24 at 14:59 Insulin Human Regular INSULIN SLIDING SCAL... ACHS SQ Last administered on 07/29/24at 19:48; Start 07/29/24 at 16:30; Stop 08/28/24 at 16:29 Cefazolin Sodium 2 gm Q8H IVP; Start 07/29/24 at 20:00; Stop 07/29/24 at 16:28; Status DC Cyclobenzaprine HCl 5 mg Q8H PRN PO Last administered on 07/29/24at 19:46; Start 07/29/24 at 15:00; Stop 08/28/24 at 14:59 Gabapentin 100 mg TID PO; Start 07/29/24 at 21:00; Stop 07/29/24 at 16:17; Status DC Ketorolac Tromethamine 15 mg Q8H IV; Start 07/29/24 at 15:00; Stop 07/29/24 at 16:20; Status DC Docusate Sodium 100 mg BID PO Last administered on 07/29/24at 19:46; Start 07/29/24 at 21:00; Stop 08/28/24 at 20:59 Potassium Chloride 100 ml @ 100 mls/hr AD PRN IV; Start 07/29/24 at 15:00; Stop 08/28/24 at 14:59 Potassium Chloride 20 meq AD PRN PO; Start 07/29/24 at 15:00; Stop 08/28/24 at 14:59 Potassium Chloride 20 meq AD PRN PO; Start 07/29/24 at 15:00; Stop 08/28/24 at 14:59 Tramadol HCl 50 mg Q6H PRN PO; Start 07/29/24 at 15:00; Stop 08/03/24 at 14:59 Acetaminophen/ Hydrocodone Bitart 1 tab Q4H PRN PO; Start 07/29/24 at 15:00; Stop 08/03/24 at 14:59 Atorvastatin Calcium 10 mg HS PO Last administered on 07/29/24at 19:46; Start 07/29/24 at 21:00; Stop 08/28/24 at 20:59 Gabapentin 100 mg TID PO; Start 07/29/24 at 21:00; Stop 08/28/24 at 20:59 Metformin HCl 500 mg HS PO Last administered on 07/29/24at 19:46; Start 07/29/24 at 21:00; Stop 08/28/24 at 20:59 Metoprolol Tartrate 25 mg HS PO Last administered on 07/29/24at 19:46; Start 07/29/24 at 21:00; Stop 08/28/24 at 20:59 Pantoprazole Sodium 40 mg HS PO Last administered on 07/29/24at 19:46; Start 07/29/24 at 21:00; Stop 08/28/24 at 20:59 Sucralfate 1 gm BID PO Last administered on 07/29/24at 19:46; Start 07/29/24 at 21:00; Stop 08/28/24 at 20:59 Trazodone HCl 50 mg HS PO Last administered on 07/29/24at 19:46; Start 07/29/24 at 21:00; Stop 08/28/24 at 20:59 Home Med 1 DROP BID OU Last administered on 07/29/24at 19:48; Start 07/29/24 at 21:00; Stop 08/28/24 at 20:59 Duloxetine HCl 60 mg HS PO Last administered on 07/29/24at 19:46; Start 07/29/24 at 21:00; Stop 08/28/24 at 20:59 Home Med (Fluticasone/ Umeclid... DAILY PO; Start 07/30/24 at 09:00; Stop 08/29/24 at 08:59 Home Med (Linaclotide (Linze... DAILY PO; Start 07/30/24 at 09:00; Stop 08/29/24 at 08:59 Home Med (Olmesartan Medoxo... HS PO; Start 07/29/24 at 21:00; Stop 08/28/24 at 20:59 Topiramate 50 mg HS PO Last administered on 07/29/24at 19:46; Start 07/29/24 at 21:00; Stop 08/28/24 at 20:59 Cefazolin Sodium 2 gm Q8H IVPB Last administered on 07/30/24at 03:05; Start 07/29/24 at 20:00; Stop 07/31/24 at 19:59 Acetaminophen/ Hydrocodone Bitart 2 tab Q4H PRN PO Last administered on 07/29/24at 23:34; Start 07/29/24 at 17:00; Stop 08/03/24 at 16:59 RIP ESPITIA NP Jul 30, 2024 08:04
[2024-07-30] MEDS ORDERED: [UNRECOGNIZED DRUG - OTHER] PO SCH (09:00)
[2024-07-30] MEDS ORDERED: VILANTER PO SCH (09:00)
[2024-07-30] MEDS ORDERED: UMECLIDIN PO SCH (09:00)
[2024-07-30] MEDS ORDERED: polyETHYLene GLYCol 3350 17 GM POWD.PACK PO SCH (09:00)
[2024-07-30] MEDS: ***HM*** (Linaclotide (Linzess) 290 MCG) PO SCH (09:00)
[2024-07-30] MEDS ORDERED: FLUTICASONE PO SCH (09:00)
[2024-07-30] MEDS: polyETHYLene GLYCol 3350 17 GM POWD.PACK PO SCH (09:00)
--- NOTE | 2024-07-30 11:16 | NUR ---
DC PLAN VISITED WITH PATIENT. PATIENT LIVES WITH SPOUSE. INDEPENDENT ABLE TO PERFORM ADL'S. PATIENT HAS NO SERVICES OR DME'S. NOT BE ABLE TO HELP AT HOME HAS OWN ISSUES. ASKED FOR [facility]. SHERRIE SIGNED PACKET MADE AND SENT. Addendum: 07/30/24 at 1118 by SAY WALTERS RN CM Amended: Links added.
--- NOTE | 2024-07-30 14:00 | NUR ---
ORTHO COORDINATOR: TEACHING REGARDING PNEUMONIA AND DVT PREVENTION, PAIN EXPECTATIONS AND PAIN MANAGEMENT. PATIENT IN BED. AT BEDSIDE. B SCD SLEEVES IN PLACE AND FUNCTIONING. INCENTIVE SPIROMETER ON BEDSIDE TRAY. PATIENT HAD L TKA IN 2022, REPORT PAIN WITH THIS KNEE MORE INTENSE. REVIEWED NUMERIC PAIN SCALE. INSTRUCTED PATIENT TO ASSIGN NUMERIC VALUE TO PAIN AND TYPE OF PAIN, EXAMPLES PROVIDED. PATIENT VERBALIZED UNDERSTANDING. ENCOURAGED PATIENT TO CALL FOR MEDICATIONS PRIOR TO 8-9 PAIN LEVEL. TYPES OF MEDICATIONS REVIEWED. PATIENT RETURN DEMONSTRATED PROPER USE OF INCENTIVE SPIROMETER AND FOOT FLEXION AND EXTENSION EXERCISES. ENCOURAGED PATIENT TO PREMEDICATE PRIOR TO PHYSICAL THERAPY DURING HOSPITAL STAY AND ONCE DISCHARGED TO REHAB. INSTRUCTED PATIENT TO CONTINUE USE OF INCENTIVE SPIROMETRY IN REHAB. PATIENT VERBALIZED UNDERSTANDING TO ALL INSTRUCTIONS. NO ADDITIONAL QUESTIONS OR CONCERNS AT THIS TIME.
[2024-07-30] MEDS: [UNRECOGNIZED DRUG - OTHER] IH SCH (14:02)
[2024-07-30] MEDS: VILANTER IH SCH (14:02)
[2024-07-30] MEDS: FLUTICASONE IH SCH (14:02)
[2024-07-30] MEDS: UMECLIDIN IH SCH (14:02)
--- NOTE | 2024-07-31 00:33 | NUR ---
nursing pm note patient alert and oriented times 4. plan of care discussed with him and his . they verbalized understanding. patient is ambulatory with a walker to the restroom to void. We offered him a shower several times and he says he will shower in the morning. Ice packs applied per protocol. He has right intermittent knee pain, relieved by pain medication. The patient has slept about 3 hours intermittently. Call light within reach, scd's on, bed alarm on, 2 side rails up. will continue to monitor patient. will take the patient to the chair for breakfast.
[2024-07-31 04:00] VITALS: BP 156/95; PULSE 67; RESP 20; TEMP 98.8
[2024-07-31 08:00] VITALS: BP 167/88; PULSE 74; RESP 18; TEMP 98.9; O2SAT 93
[2024-07-31 11:54] VITALS: BP 155/95; PULSE 73; RESP 18; TEMP 98.8
--- NOTE | 2024-07-31 12:35 | NUR ---
ORTHO COORDINATOR: REINFORCED TEACHING. PATIENT UP TO CHAIR. ROUNDED WITH DR. ZABALA. REINFORCED PAIN EXPECTATIONS AND PAIN MANAGEMENT STRATEGIES. PATIENT REQUESTED UPDATE ON REHAB PLACEMENT, NONE DOCUMENTED AT PRESENT TIME.
[2024-07-31] MEDS: traMADol HCL 50 MG TABLET PO PRN (12:37)
--- NOTE | 2024-07-31 13:55 | PN ---
Ortho postop day two. Patient reports doing well. States pain controlled. Vital signs stable. Afebrile. No acute distress, alert and oriented x3 Nonlabored breathing Right lower extremity - ecchymosis present along the posterolateral aspect of the knee - mild edema present - able to achieve full extension with the assistance -calf is soft and nontender, negative Homans Patient ambulated yesterday with therapy 60/60 ft in the AM/PM. 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 He understands we will need to go through with the process and if not accepted may have to consider therapy in the home setting. We will defer to case management Assessment: Postop day two status post right total knee arthroplasty. Acute postoperative blood loss anemia. Plan: Continue with Dr. Santos's total knee arthroplasty protocol and discharge planning. Acute postoperative blood loss anemia addressed per protocol as necessary. Vitals/Labs Vital Signs Date Time Temp Pulse Resp B/P (MAP) Pulse Ox O2 Delivery O2 Flow Rate FiO2 07/31/24 11:54 98.8 73 18 155/95 92 Room Air 07/30/24 19:05 0 21 Medications Current Medications Cefazolin Sodium 2 gm STK-MED ONCE .ROUTE Last administered on 07/29/24at 11:14; Start 07/29/24 at 08:34; Stop 07/29/24 at 08:35; Status DC Sodium Chloride 1,000 ml @ As Directed STK-MED ONCE IV Last administered on 07/29/24at 09:27; Start 07/29/24 at 08:34; Stop 07/29/24 at 08:35; Status DC Acetaminophen 100 ml @ As Directed STK-MED ONCE .ROUTE; Start 07/29/24 at 09: 43; Stop 07/29/24 at 09:43; Status DC Famotidine 20 mg STK-MED ONCE IV; Start 07/29/24 at 09:43; Stop 07/29/24 at 09:43; Status DC Ropivacaine 150 mg STK-MED ONCE .ROUTE; Start 07/29/24 at 09:45; Stop 07/29/24 at 09:45; Status DC Ketamine HCl 50 mg STK-MED ONCE .ROUTE; Start 07/29/24 at 09:45; Stop 07/29/24 at 09:45; Status DC Lidocaine HCl 100 mg STK-MED ONCE .ROUTE; Start 07/29/24 at 09:49; Stop 07/29/24 at 09:49; Status DC Propofol 200 mg STK-MED ONCE IV; Start 07/29/24 at 09:49; Stop 07/29/24 at 09 :49; Status DC Rocuronium [place] 50 mg STK-MED ONCE .ROUTE; Start 07/29/24 at 09:49; Stop 07/29/24 at 09:50; Status DC Fentanyl Citrate 100 mcg STK-MED ONCE .ROUTE; Start 07/29/24 at 09:49; Stop 07/29/24 at 09:50; Status DC Tranexamic Acid 1,000 mg STK-MED ONCE .ROUTE Last administered on 07/29/24at 12:55; Start 07/29/24 at 10:03; Stop 07/29/24 at 10:03; Status DC Tranexamic Acid 1,000 mg STK-MED ONCE .ROUTE Last administered on 07/29/24at 10:30; Start 07/29/24 at 10:03; Stop 07/29/24 at 10:03; Status DC Ketorolac Tromethamine 30 mg STK-MED ONCE .ROUTE Last administered on 07/29/24at 11:19; Start 07/29/24 at 10:16; Stop 07/29/24 at 10:16; Status DC Ropivacaine 150 mg STK-MED ONCE .ROUTE Last administered on 07/29/24at 11:19; Start 07/29/24 at 10:16; Stop 07/29/24 at 10:17; Status DC Ondansetron HCl 4 mg STK-MED ONCE .ROUTE; Start 07/29/24 at 10:23; Stop 07/29/24 at 10:24; Status DC Dexamethasone Sodium Phosphate 10 mg STK-MED ONCE .ROUTE; Start 07/29/24 at 10:23; Stop 07/29/24 at 10:24; Status DC Sodium Chloride 1,000 ml @ 100 mls/hr Q10H IV Last administered on 07/29/24at 23:34; Start 07/29/24 at 10:30; Stop 07/30/24 at 01:01; Status DC Polyethylene Glycol 17 gm DAILY PO Last administered on 07/31/24at 07:42; Start 07/30/24 at 09:00; Stop 08/29/24 at 08:59 Bisacodyl 10 mg DAILY PRN RC; Start 08/01/24 at 10:30; Stop 08/31/24 at 10:29 Aspirin 325 mg BID PO Last administered on 07/31/24at 07:42; Start 07/29/24 at 21:00; Stop 08/28/24 at 20:59 Ketorolac Tromethamine 15 mg Q6H PRN IV Last administered on 07/31/24at 10:41; Start 07/29/24 at 10:30; Stop 08/03/24 at 10:29 Ferrous Fumarate 324 mg DAILY PRN PO; Start 07/29/24 at 10:30; Stop 08/28/24 at 10:29 Ephedrine Sulfate 50 mg STK-MED ONCE .ROUTE; Start 07/29/24 at 10:47; Stop 07/29/24 at 10:47; Status DC Rocuronium [place] 50 mg STK-MED ONCE .ROUTE; Start 07/29/24 at 11:16; Stop 07/29/24 at 11:17; Status DC Glycopyrrolate 1 mg STK-MED ONCE .ROUTE; Start 07/29/24 at 13:07; Stop 07/29/24 at 13:07; Status DC Neostigmine Methylsulfate 10 mg STK-MED ONCE IV; Start 07/29/24 at 13:07; Stop 07/29/24 at 13:07; Status DC Morphine Sulfate 2 mg STK-MED ONCE .ROUTE Last administered on 07/29/24at 14:05; Start 07/29/24 at 14:02; Stop 07/29/24 at 14:02; Status DC Ketorolac Tromethamine 15 mg STK-MED ONCE .ROUTE Last administered on 07/29/24at 14:32; Start 07/29/24 at 14:28; Stop 07/29/24 at 14:29; Status DC Sodium Chloride 1,000 ml @ 100 mls/hr Q10H IV; Start 07/29/24 at 15:00; Stop 07/29/24 at 16:22; Status DC Polyethylene Glycol 17 gm DAILY PO; Start 07/30/24 at 09:00; Stop 07/29/24 at 16:23; Status DC Bisacodyl 10 mg DAILY PRN RC; Start 08/01/24 at 15:00; Stop 07/29/24 at 16:17; Status DC Aspirin 325 mg BID PO; Start 07/29/24 at 21:00; Stop 07/29/24 at 16:22; Status DC Ketorolac Tromethamine 15 mg Q6H PRN IV; Start 07/29/24 at 15:00; Stop 07/29/24 at 16:20; Status DC Ferrous Fumarate 324 mg DAILY PRN PO; Start 07/29/24 at 15:00; Stop 07/29/24 at 16:23; Status DC Ondansetron HCl 4 mg Q6H PRN IVP; Start 07/29/24 at 15:00; Stop 08/28/24 at 14:59 Calcium Carbonate 500 mg Q12H PRN PO; Start 07/29/24 at 15:00; Stop 08/28/24 at 14:59 Diphenhydramine HCl 25 mg Q6H PRN IVP; Start 07/29/24 at 15:00; Stop 08/28/24 at 14:59 Insulin Human Regular INSULIN SLIDING SCAL... ACHS SQ Last administered on 07/29/24at 19:48; Start 07/29/24 at 16:30; Stop 08/28/24 at 16:29 Cefazolin Sodium 2 gm Q8H IVP; Start 07/29/24 at 20:00; Stop 07/29/24 at 16:28; Status DC Cyclobenzaprine HCl 5 mg Q8H PRN PO Last administered on 07/31/24at 06:30; Start 07/29/24 at 15:00; Stop 08/28/24 at 14:59 Gabapentin 100 mg TID PO; Start 07/29/24 at 21:00; Stop 07/29/24 at 16:17; Status DC Ketorolac Tromethamine 15 mg Q8H IV; Start 07/29/24 at 15:00; Stop 07/29/24 at 16:20; Status DC Docusate Sodium 100 mg BID PO Last administered on 07/31/24at 07:42; Start 07/29/24 at 21:00; Stop 08/28/24 at 20:59 Potassium Chloride 100 ml @ 100 mls/hr AD PRN IV; Start 07/29/24 at 15:00; Stop 08/28/24 at 14:59 Potassium Chloride 20 meq AD PRN PO; Start 07/29/24 at 15:00; Stop 08/28/24 at 14:59 Potassium Chloride 20 meq AD PRN PO; Start 07/29/24 at 15:00; Stop 08/28/24 at 14:59 Tramadol HCl 50 mg Q6H PRN PO Last administered on 07/31/24at 12:37; Start 07/29/24 at 15:00; Stop 08/03/24 at 14:59 Acetaminophen/ Hydrocodone Bitart 1 tab Q4H PRN PO; Start 07/29/24 at 15:00; S top 08/03/24 at 14:59 Atorvastatin Calcium 10 mg HS PO Last administered on 07/30/24at 19:43; Start 07/29/24 at 21:00; Stop 08/28/24 at 20:59 Gabapentin 100 mg TID PO Last administered on 07/31/24at 07:55; Start 07/29/24 at 21:00; Stop 08/28/24 at 20:59 Metformin HCl 500 mg HS PO Last administered on 07/30/24at 19:43; Start 07/29/24 at 21:00; Stop 08/28/24 at 20:59 Metoprolol Tartrate 25 mg HS PO Last administered on 07/30/24at 19:43; Start 07/29/24 at 21:00; Stop 08/28/24 at 20:59 Pantoprazole Sodium 40 mg HS PO Last administered on 07/30/24at 19:44; Start 07/29/24 at 21:00; Stop 08/28/24 at 20:59 Sucralfate 1 gm BID PO Last administered on 07/31/24at 07:41; Start 07/29/24 at 21:00; Stop 08/28/24 at 20:59 Trazodone HCl 50 mg HS PO Last administered on 07/30/24at 19:43; Start 07/29/24 at 21:00; Stop 08/28/24 at 20:59 Home Med 1 DROP BID OU Last administered on 07/29/24at 19:48; Start 07/29/24 at 21:00; Stop 08/28/24 at 20:59 Duloxetine HCl 60 mg HS PO Last administered on 07/30/24at 19:43; Start 07/29/24 at 21:00; Stop 08/28/24 at 20:59 Home Med (Fluticasone/ Umeclid... DAILY PO; Start 07/30/24 at 09:00; Stop 07/30/24 at 10:17; Status DC Home Med (Linaclotide (Linze... DAILY PO; Start 07/30/24 at 09:00; Stop 08/29/24 at 08:59 Home Med (Olmesartan Medoxo... HS PO; Start 07/29/24 at 21:00; Stop 08/28/24 at 20:59 Topiramate 50 mg HS PO Last administered on 07/30/24at 19:43; Start 07/29/24 at 21:00; Stop 08/28/24 at 20:59 Cefazolin Sodium 2 gm Q8H IVPB Last administered on 07/30/24at 19:45; Start 07/29/24 at 20:00; Stop 07/30/24 at 19:59; Status DC Acetaminophen/ Hydrocodone Bitart 2 tab Q4H PRN PO Last administered on 07/31/24at 07:41; Start 07/29/24 at 17:00; Stop 08/03/24 at 16:59 Home Med (Fluticasone/ Umeclid... DAILY IH Last administered on 07/31/24at 07:53; Start 07/30/24 at 11:00; Stop 08/29/24 at 08:59 MARIYA SANTOS MD Jul 31, 2024 13:55
[2024-07-31 16:00] VITALS: BP 156/95; PULSE 70; RESP 18; TEMP 97.9
--- NOTE | 2024-07-31 16:07 | NUR ---
[facility]SA PLAN REFERRAL SENT TO [facility]. ESCALLATED WITH OBSERVATION ASSISTANT WITH INSURANCE. PENDING AUTH. Addendum: 07/31/24 at 1626 by SAY WALTERS RN CM Amended: Links added.
[2024-07-31 21:00] VITALS: BP 159/94; PULSE 78; RESP 18; TEMP 98.3
[2024-07-31 23:54] VITALS: BP 136/82; PULSE 68; RESP 20; TEMP 97.7
[2024-08-01 03:34] VITALS: BP 145/83; PULSE 70; RESP 20; TEMP 98.2
[2024-08-01] MEDS: HYDROcodone/APAP 5/325 1 TAB TABLET PO PRN (07:42)
[2024-08-01 08:00] VITALS: BP 132/79; PULSE 78; RESP 18; TEMP 98.6; O2SAT 94
--- NOTE | 2024-08-01 08:37 | PN ---
Ortho postop day 3. Patient reports doing well. States pain controlled. Has not heard from insurance about discharge yet. Vital signs stable. Afebrile. No acute distress, alert and oriented x3 Nonlabored breathing Right lower extremity - ecchymosis present along the posterolateral aspect of the knee - mild edema present - able to achieve full extension with the assistance - calf is soft and nontender, negative Homans - Surgical dressing is removed incision is noted to be clean, dry, and intact. Patient ambulated yesterday with therapy 60 ft in the PM. 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 He understands we will need to go through with the process and if not accepted may have to consider therapy in the home setting. We will defer to case management Assessment: Postop day 3 status post right total knee arthroplasty - doing well Acute postoperative blood loss anemia - asymptomatic Plan: Continue with my total knee arthroplasty protocol and discharge planning. Acute postoperative blood loss anemia addressed per protocol as necessary. Vitals/Labs Vital Signs Date Time Temp Pulse Resp B/P (MAP) Pulse Ox O2 Delivery O2 Flow Rate FiO2 08/01/24 03:34 98.2 70 20 145/83 92 Room Air 07/31/24 20:00 0 21 Medications Current Medications Cefazolin Sodium 2 gm STK-MED ONCE .ROUTE Last administered on 07/29/24at 11:14; Start 07/29/24 at 08:34; Stop 07/29/24 at 08:35; Status DC Sodium Chloride 1,000 ml @ As Directed STK-MED ONCE IV Last administered on 07/29/24at 09:27; Start 07/29/24 at 08:34; Stop 07/29/24 at 08:35; Status DC Acetaminophen 100 ml @ As Directed STK-MED ONCE .ROUTE; Start 07/29/24 at 09:43; Stop 07/29/24 at 09:43; Status DC Famotidine 20 mg STK-MED ONCE IV; Start 07/29/24 at 09:43; Stop 07/29/24 at 09:43; Status DC Ropivacaine 150 mg STK-MED ONCE .ROUTE; Start 07/29/24 at 09:45; Stop 07/29/24 at 09:45; Status DC Ketamine HCl 50 mg STK-MED ONCE .ROUTE; Start 07/29/24 at 09:45; Stop 07/29/24 at 09:45; Status DC Lidocaine HCl 100 mg STK-MED ONCE .ROUTE; Start 07/29/24 at 09:49; Stop 07/29/24 at 09:49; Status DC Propofol 200 mg STK-MED ONCE IV; Start 07/29/24 at 09:49; Stop 07/29/24 at 09:49; Status DC Rocuronium [place] 50 mg STK-MED ONCE .ROUTE; Start 07/29/24 at 09:49; Stop 07/29/24 at 09:50; Status DC Fentanyl Citrate 100 mcg STK-MED ONCE .ROUTE; Start 07/29/24 at 09:49; Stop 07/29/24 at 09:50; Status DC Tranexamic Acid 1,000 mg STK-MED ONCE .ROUTE Last administered on 07/29/24at 12:55; Start 07/29/24 at 10:03; Stop 07/29/24 at 10:03; Status DC Tranexamic Acid 1,000 mg STK-MED ONCE .ROUTE Last administered on 07/29/24at 10:30; Start 07/29/24 at 10:03; Stop 07/29/24 at 10:03; Status DC Ketorolac Tromethamine 30 mg STK-MED ONCE .ROUTE Last administered on 07/29/24at 11:19; Start 07/29/24 at 10:16; Stop 07/29/24 at 10:16; Status DC Ropivacaine 150 mg STK-MED ONCE .ROUTE Last administered on 07/29/24at 11:19; Start 07/29/24 at 10:16; Stop 07/29/24 at 10:17; Status DC Ondansetron HCl 4 mg STK-MED ONCE .ROUTE; Start 07/29/24 at 10:23; Stop 07/29/24 at 10:24; Status DC Dexamethasone Sodium Phosphate 10 mg STK-MED ONCE .ROUTE; Start 07/29/24 at 10:23; Stop 07/29/24 at 10:24; Status DC Sodium Chloride 1,000 ml @ 100 mls/hr Q10H IV Last administered on 07/29/24at 23:34; Start 07/29/24 at 10:30; Stop 07/30/24 at 01:01; Status DC Polyethylene Glycol 17 gm DAILY PO Last administered on 08/01/24at 08:22; Start 07/30/24 at 09:00; Stop 08/29/24 at 08:59 Bisacodyl 10 mg DAILY PRN RC; Start 08/01/24 at 10:30; Stop 08/31/24 at 10:29 Aspirin 325 mg BID PO Last administered on 08/01/24at 08:21; Start 07/29/24 at 21:00; Stop 08/28/24 at 20:59 Ketorolac Tromethamine 15 mg Q6H PRN IV Last administered on 07/31/24at 10:41; Start 07/29/24 at 10:30; Stop 08/03/24 at 10:29 Ferrous Fumarate 324 mg DAILY PRN PO; Start 07/29/24 at 10:30; Stop 08/28/24 at 10:29 Ephedrine Sulfate 50 mg STK-MED ONCE .ROUTE; Start 07/29/24 at 10:47; Stop 07/29/24 at 10:47; Status DC Rocuronium [place] 50 mg STK-MED ONCE .ROUTE; Start 07/29/24 at 11:16; Stop 07/29/24 at 11:17; Status DC Glycopyrrolate 1 mg STK-MED ONCE .ROUTE; Start 07/29/24 at 13:07; Stop 07/29/24 at 13:07; Status DC Neostigmine Methylsulfate 10 mg STK-MED ONCE IV; Start 07/29/24 at 13:07; Stop 07/29/24 at 13:07; Status DC Morphine Sulfate 2 mg STK-MED ONCE .ROUTE Last administered on 07/29/24at 14:05; Start 07/29/24 at 14:02; Stop 07/29/24 at 14:02; Status DC Ketorolac Tromethamine 15 mg STK-MED ONCE .ROUTE Last administered on 07/29/24at 14:32; Start 07/29/24 at 14:28; Stop 07/29/24 at 14:29; Status DC Sodium Chloride 1,000 ml @ 100 mls/hr Q10H IV; Start 07/29/24 at 15:00; Stop 07/29/24 at 16:22; Status DC Polyethylene Glycol 17 gm DAILY PO; Start 07/30/24 at 09:00; Stop 07/29/24 at 16:23; Status DC Bisacodyl 10 mg DAILY PRN RC; Start 08/01/24 at 15:00; Stop 07/29/24 at 16:17; Status DC Aspirin 325 mg BID PO; Start 07/29/24 at 21:00; Stop 07/29/24 at 16:22; Status DC Ketorolac Tromethamine 15 mg Q6H PRN IV; Start 07/29/24 at 15:00; Stop 07/29/24 at 16:20; Status DC Ferrous Fumarate 324 mg DAILY PRN PO; Start 07/29/24 at 15:00; Stop 07/29/24 at 16:23; Status DC Ondansetron HCl 4 mg Q6H PRN IVP; Start 07/29/24 at 15:00; Stop 08/28/24 at 14:59 Calcium Carbonate 500 mg Q12H PRN PO; Start 07/29/24 at 15:00; Stop 08/28/24 at 14:59 Diphenhydramine HCl 25 mg Q6H PRN IVP; Start 07/29/24 at 15:00; Stop 08/28/24 at 14:59 Insulin Human Regular INSULIN SLIDING SCAL... ACHS SQ Last administered on 07/29/24at 19:48; Start 07/29/24 at 16:30; Stop 08/28/24 at 16:29 Cefazolin Sodium 2 gm Q8H IVP; Start 07/29/24 at 20:00; Stop 07/29/24 at 16:28; Status DC Cyclobenzaprine HCl 5 mg Q8H PRN PO Last administered on 07/31/24at 06:30; Start 07/29/24 at 15:00; Stop 08/28/24 at 14:59 Gabapentin 100 mg TID PO; Start 07/29/24 at 21:00; Stop 07/29/24 at 16:17; Status DC Ketorolac Tromethamine 15 mg Q8H IV; Start 07/29/24 at 15:00; Stop 07/29/24 at 16:20; Status DC Docusate Sodium 100 mg BID PO Last administered on 08/01/24at 08:21; Start 07/29/24 at 21:00; Stop 08/28/24 at 20:59 Potassium Chloride 100 ml @ 100 mls/hr AD PRN IV; Start 07/29/24 at 15:00; S top 08/28/24 at 14:59 Potassium Chloride 20 meq AD PRN PO; Start 07/29/24 at 15:00; Stop 08/28/24 at 14:59 Potassium Chloride 20 meq AD PRN PO; Start 07/29/24 at 15:00; Stop 08/28/24 at 14:59 Tramadol HCl 50 mg Q6H PRN PO Last administered on 07/31/24at 18:51; Start 07/29/24 at 15:00; Stop 08/03/24 at 14:59 Acetaminophen/ Hydrocodone Bitart 1 tab Q4H PRN PO Last administered on at 07:42; Start 07/29/24 at 15:00; Stop 08/03/24 at 14:59 Atorvastatin Calcium 10 mg HS PO Last administered on 07/31/24at 20:35; Start 07/29/24 at 21:00; Stop 08/28/24 at 20:59 Gabapentin 100 mg TID PO Last administered on 08/01/24at 08:22; Start 07/29/24 at 21:00; Stop 08/28/24 at 20:59 Metformin HCl 500 mg HS PO Last administered on 07/31/24at 20:35; Start 07/29/24 at 21:00; Stop 08/28/24 at 20:59 Metoprolol Tartrate 25 mg HS PO Last administered on 07/31/24at 20:35; Start 07/29/24 at 21:00; Stop 08/28/24 at 20:59 Pantoprazole Sodium 40 mg HS PO Last administered on 07/31/24at 20:36; Start 07/29/24 at 21:00; Stop 08/28/24 at 20:59 Sucralfate 1 gm BID PO Last administered on 08/01/24at 08:21; Start 07/29/24 at 21:00; Stop 08/28/24 at 20:59 Trazodone HCl 50 mg HS PO Last administered on 07/31/24at 20:35; Start 07/29/24 at 21:00; Stop 08/28/24 at 20:59 Home Med 1 DROP BID OU Last administered on 07/29/24at 19:48; Start 07/29/24 at 21:00; Stop 08/28/24 at 20:59 Duloxetine HCl 60 mg HS PO Last administered on 07/31/24at 20:36; Start 07/29/24 at 21:00; Stop 08/28/24 at 20:59 Home Med (Fluticasone/ Umeclid... DAILY PO; Start 07/30/24 at 09:00; Stop 07/30/24 at 10:17; Status DC Home Med (Linaclotide (Linze... DAILY PO; Start 07/30/24 at 09:00; Stop 08/29/24 at 08:59 Home Med (Olmesartan Medoxo... HS PO; Start 07/29/24 at 21:00; Stop 08/28/24 at 20:59 Topiramate 50 mg HS PO Last administered on 07/31/24at 20:35; Start 07/29/24 at 21:00; Stop 08/28/24 at 20:59 Cefazolin Sodium 2 gm Q8H IVPB Last administered on 07/30/24at 19:45; Start 07/29/24 at 20:00; Stop 07/30/24 at 19:59; Status DC Acetaminophen/ Hydrocodone Bitart 2 tab Q4H PRN PO Last administered on 07/31/24at 20:37; Start 07/29/24 at 17:00; Stop 08/03/24 at 16:59 Home Med (Fluticasone/ Umeclid... DAILY IH Last administered on 07/31/24at 07:53; Start 07/30/24 at 11:00; Stop 08/29/24 at 08:59 MARIYA ZABALA MD Aug 01, 2024 08:37
[2024-08-01 12:00] VITALS: BP 139/88; PULSE 70; RESP 18; TEMP 98.3
[2024-08-01] MEDS: BisaCODYL 10 MG SUPP.RECT RC PRN (14:02)
[2024-08-01] MEDS ORDERED: BisaCODYL 10 MG SUPP.RECT RC PRN (15:00)
--- NOTE | 2024-08-01 15:15 | NUR ---
DCP Pt was denied [facility]. Went to speak with pt and spouse of discharge plan for home with home health and DME equipment. Pt denied signing any paperwork for discharge plan and stated he would stay until they obtained a result of [facility] appeal. Dr. Santos was made aware.
[2024-08-01 16:00] VITALS: BP 152/76; PULSE 79; RESP 18; TEMP 98.3
--- NOTE | 2024-08-01 18:00 | NUR ---
BENNETT HAS NOT HAD A BOWEL Addendum: 08/01/24 at 1802 by BETHANY HURD LVN LVN SUPPOSITORY GIVEN D/T NO BM IN 5 DAYS.
--- NOTE | 2024-08-01 18:03 | NUR ---
NEW ORDER RECEIVED FOR ENEMA QD PRN. ENEMA GIVEN
[2024-08-01 20:09] VITALS: BP 163/94; PULSE 78; RESP 20; TEMP 97.8
[2024-08-02 00:07] VITALS: BP 138/81; PULSE 76; RESP 20; TEMP 97.9
[2024-08-02 08:00] VITALS: BP 125/76; PULSE 73; RESP 18; TEMP 97.9; O2SAT 94
--- NOTE | 2024-08-02 09:00 | NUR ---
Home medications were not available at bedside. Did not give them. Discussed with patient and family members the importance of bringing then for continuity of care.
--- NOTE | 2024-08-02 11:30 | NUR ---
Blood glucose 136. No insulin coverage needed at this time.
[2024-08-02 11:45] VITALS: BP 142/86; PULSE 75; RESP 18; TEMP 97.9
--- NOTE | 2024-08-02 13:16 | PN ---
Ortho postop day 4. Patient reports doing well. States pain controlled. No new problems. +BM. Received denial on STR and patient/ state they are appealing. Vital signs stable. Afebrile. No acute distress, alert and oriented x3 Nonlabored breathing Right lower extremity - ecchymosis present along the posterolateral aspect of the knee - mild edema present - able to achieve full extension with the assistance, but hamstrings are tight - incision is noted to be clean, dry, and intact. Patient ambulated yesterday with therapy 60 ft twice but required moderate assistance with bed mobility. 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 He understands we will need to go through with the process and if not accepted may have to consider therapy in the home setting. We will defer to case management. Currently in the appeal process. Assessment: Postop day 4 status post right total knee arthroplasty - doing well Acute postoperative blood loss anemia - asymptomatic Plan: Continue with my total knee arthroplasty protocol and discharge planning. Acute postoperative blood loss anemia addressed per protocol as necessary. Vitals/Labs Vital Signs Date Time Temp Pulse Resp B/P (MAP) Pulse Ox O2 Delivery O2 Flow Rate FiO2 08/02/24 11:45 97.9 75 18 142/86 98 Room Air 21 08/02/24 08:00 0 Medications Current Medications Cefazolin Sodium 2 gm STK-MED ONCE .ROUTE Last administered on 07/29/24at 11:14; Start 07/29/24 at 08:34; Stop 07/29/24 at 08:35; Status DC Sodium Chloride 1,000 ml @ As Directed STK-MED ONCE IV Last administered on 07/29/24at 09:27; Start 07/29/24 at 08:34; Stop 07/29/24 at 08:35; Status DC Acetaminophen 100 ml @ As Directed STK-MED ONCE .ROUTE; Start 07/29/24 at 09:43; Stop 07/29/24 at 09:43; Status DC Famotidine 20 mg STK-MED ONCE IV; Start 07/29/24 at 09:43; Stop 07/29/24 at 09:43; Status DC Ropivacaine 150 mg STK-MED ONCE .ROUTE; Start 07/29/24 at 09:45; Stop 07/29/24 at 09:45; Status DC Ketamine HCl 50 mg STK-MED ONCE .ROUTE; Start 07/29/24 at 09:45; Stop 07/29/24 at 09:45; Status DC Lidocaine HCl 100 mg STK-MED ONCE .ROUTE; Start 07/29/24 at 09:49; Stop 07/29/24 at 09:49; Status DC Propofol 200 mg STK-MED ONCE IV; Start 07/29/24 at 09:49; Stop 07/29/24 at 09:49; Status DC Rocuronium Elbert 50 mg STK-MED ONCE .ROUTE; Start 07/29/24 at 09:49; Stop 07/29/24 at 09:50; Status DC Fentanyl Citrate 100 mcg STK-MED ONCE .ROUTE; Start 07/29/24 at 09:49; Stop 07/29/24 at 09:50; Status DC Tranexamic Acid 1,000 mg STK-MED ONCE .ROUTE Last administered on 07/29/24at 1 2:55; Start 07/29/24 at 10:03; Stop 07/29/24 at 10:03; Status DC Tranexamic Acid 1,000 mg STK-MED ONCE .ROUTE Last administered on 07/29/24at 10:30; Start 07/29/24 at 10:03; Stop 07/29/24 at 10:03; Status DC Ketorolac Tromethamine 30 mg STK-MED ONCE .ROUTE Last administered on 07/29/24at 11:19; Start 07/29/24 at 10:16; Stop 07/29/24 at 10:16; Status DC Ropivacaine 150 mg STK-MED ONCE .ROUTE Last administered on 07/29/24at 11:19; Start 07/29/24 at 10:16; Stop 07/29/24 at 10:17; Status DC Ondansetron HCl 4 mg STK-MED ONCE .ROUTE; Start 07/29/24 at 10:23; Stop 07/29/24 at 10:24; Status DC Dexamethasone Sodium Phosphate 10 mg STK-MED ONCE .ROUTE; Start 07/29/24 at 10:23; Stop 07/29/24 at 10:24; Status DC Sodium Chloride 1,000 ml @ 100 mls/hr Q10H IV Last administered on 07/29/24at 23:34; Start 07/29/24 at 10:30; Stop 07/30/24 at 01:01; Status DC Polyethylene Glycol 17 gm DAILY PO Last administered on 08/02/24at 10:01; Start 07/30/24 at 09:00; Stop 08/29/24 at 08:59 Bisacodyl 10 mg DAILY PRN RC Last administered on 08/01/24at 14:02; Start 08/01/24 at 10:30; Stop 08/31/24 at 10:29 Aspirin 325 mg BID PO Last administered on 08/02/24at 10:02; Start 07/29/24 at 21:00; Stop 08/28/24 at 20:59 Ketorolac Tromethamine 15 mg Q6H PRN IV Last administered on 08/01/24at 22:32; Start 07/29/24 at 10:30; Stop 08/03/24 at 10:29 Ferrous Fumarate 324 mg DAILY PRN PO; Start 07/29/24 at 10:30; Stop 08/28/24 at 10:29 Ephedrine Sulfate 50 mg STK-MED ONCE .ROUTE; Start 07/29/24 at 10:47; Stop 07/29/24 at 10:47; Status DC Rocuronium Elbert 50 mg STK-MED ONCE .ROUTE; Start 07/29/24 at 11:16; Stop 07/29/24 at 11:17; Status DC Glycopyrrolate 1 mg STK-MED ONCE .ROUTE; Start 07/29/24 at 13:07; Stop 07/29/24 at 13:07; Status DC Neostigmine Methylsulfate 10 mg STK-MED ONCE IV; Start 07/29/24 at 13:07; Stop 07/29/24 at 13:07; Status DC Morphine Sulfate 2 mg STK-MED ONCE .ROUTE Last administered on 07/29/24at 14:05; Start 07/29/24 at 14:02; Stop 07/29/24 at 14:02; Status DC Ketorolac Tromethamine 15 mg STK-MED ONCE .ROUTE Last administered on 07/29/24at 14:32; Start 07/29/24 at 14:28; Stop 07/29/24 at 14:29; Status DC Sodium Chloride 1,000 ml @ 100 mls/hr Q10H IV; Start 07/29/24 at 15:00; Stop 07/29/24 at 16:22; Status DC Polyethylene Glycol 17 gm DAILY PO; Start 07/30/24 at 09:00; Stop 07/29/24 at 16:23; Status DC Bisacodyl 10 mg DAILY PRN RC; Start 08/01/24 at 15:00; Stop 07/29/24 at 16:17; Status DC Aspirin 325 mg BID PO; Start 07/29/24 at 21:00; Stop 07/29/24 at 16:22; Status DC Ketorolac Tromethamine 15 mg Q6H PRN IV; Start 07/29/24 at 15:00; Stop 07/29/24 at 16:20; Status DC Ferrous Fumarate 324 mg DAILY PRN PO; Start 07/29/24 at 15:00; Stop 07/29/24 at 16:23; Status DC Ondansetron HCl 4 mg Q6H PRN IVP; Start 07/29/24 at 15:00; Stop 08/28/24 at 14:59 Calcium Carbonate 500 mg Q12H PRN PO; Start 07/29/24 at 15:00; Stop 08/28/24 at 14:59 Diphenhydramine HCl 25 mg Q6H PRN IVP; Start 07/29/24 at 15:00; Stop 08/28/24 at 14:59 Insulin Human Regular INSULIN SLIDING SCAL... ACHS SQ Last administered on 07/29/24at 19:48; Start 07/29/24 at 16:30; Stop 08/28/24 at 16:29 Cefazolin Sodium 2 gm Q8H IVP; Start 07/29/24 at 20:00; Stop 07/29/24 at 16:28; Status DC Cyclobenzaprine HCl 5 mg Q8H PRN PO Last administered on 08/01/24at 22:32; Start 07/29/24 at 15:00; Stop 08/28/24 at 14:59 Gabapentin 100 mg TID PO; Start 07/29/24 at 21:00; Stop 07/29/24 at 16:17; Status DC Ketorolac Tromethamine 15 mg Q8H IV; Start 07/29/24 at 15:00; Stop 07/29/24 at 16:20; Status DC Docusate Sodium 100 mg BID PO Last administered on 08/02/24at 10:02; Start 07/29/24 at 21:00; Stop 08/28/24 at 20:59 Potassium Chloride 100 ml @ 100 mls/hr AD PRN IV; Start 07/29/24 at 15:00; Stop 08/28/24 at 14:59 Potassium Chloride 20 meq AD PRN PO; Start 07/29/24 at 15:00; Stop 08/28/24 at 14:59 Potassium Chloride 20 meq AD PRN PO; Start 07/29/24 at 15:00; Stop 08/28/24 at 14:59 Tramadol HCl 50 mg Q6H PRN PO Last administered on 07/31/24at 18:51; Start 07/29/24 at 15:00; Stop 08/03/24 at 14:59 Acetaminophen/ Hydrocodone Bitart 1 tab Q4H PRN PO Last administered on 08/02/24at 10:04; Start 07/29/24 at 15:00; Stop 08/03/24 at 14:59 Atorvastatin Calcium 10 mg HS PO Last administered on 08/01/24at 19:29; Start 07/29/24 at 21:00; Stop 08/28/24 at 20:59 Gabapentin 100 mg TID PO Last administered on 08/02/24at 10:02; Start 07/29/24 at 21:00; Stop 08/28/24 at 20:59 Metformin HCl 500 mg HS PO Last administered on 08/01/24at 19:28; Start 07/29/24 at 21:00; Stop 08/28/24 at 20:59 Metoprolol Tartrate 25 mg HS PO Last administered on 08/01/24at 19:28; Start 07/29/24 at 21:00; Stop 08/28/24 at 20:59 Pantoprazole Sodium 40 mg HS PO Last administered on 08/01/24at 19:28; Start 07/29/24 at 21:00; Stop 08/28/24 at 20:59 Sucralfate 1 gm BID PO Last administered on 08/02/24at 10:02; Start 07/29/24 at 21:00; Stop 08/28/24 at 20:59 Trazodone HCl 50 mg HS PO Last administered on 08/01/24at 19:29; Start 07/29/24 at 21:00; Stop 08/28/24 at 20:59 Home Med 1 DROP BID OU Last administered on 07/29/24at 19:48; Start 07/29/24 at 21:00; Stop 08/28/24 at 20:59 Duloxetine HCl 60 mg HS PO Last administered on 08/01/24at 19:28; Start 07/29/24 at 21:00; Stop 08/28/24 at 20:59 Home Med (Fluticasone/ Umeclid... DAILY PO; Start 07/30/24 at 09:00; Stop 07/30/24 at 10:17; Status DC Home Med (Linaclotide (Linze... DAILY PO; Start 07/30/24 at 09:00; Stop 08/29/24 at 08:59 Home Med (Olmesartan Medoxo... HS PO; Start 07/29/24 at 21:00; Stop 08/28/24 at 20:59 Topiramate 50 mg HS PO Last administered on 08/01/24at 19:28; Start 07/29/24 at 21:00; Stop 08/28/24 at 20:59 Cefazolin Sodium 2 gm Q8H IVPB Last administered on 07/30/24at 19:45; Start 07/17 10/08 at 20:00; Stop 07/30/24 at 19:59; Status DC Acetaminophen/ Hydrocodone Bitart 2 tab Q4H PRN PO Last administered on at 19:29; Start 07/29/24 at 17:00; Stop 08/03/24 at 16:59 Home Med (Fluticasone/ Umeclid... DAILY IH Last administered on 07/31/24at 07:53; Start 07/30/24 at 11:00; Stop 08/29/24 at 08:59 MARIYA ZABALA MD Aug 02, 2024 13:16
[2024-08-02 16:00] VITALS: BP 129/85; PULSE 66; RESP 18; TEMP 98.3
[2024-08-02 20:00] VITALS: BP 135/89; PULSE 84; RESP 18; TEMP 98.3
[2024-08-02 23:36] VITALS: BP 127/86; PULSE 85; RESP 18; TEMP 98
[2024-08-03 04:00] VITALS: BP 131/79; PULSE 75; RESP 18; TEMP 97.8
[2024-08-03 08:30] VITALS: BP 121/79; PULSE 73; RESP 19; TEMP 97.7; O2SAT 95
[2024-08-03 12:00] VITALS: BP 139/80; PULSE 71; RESP 19; TEMP 98
[2024-08-03 16:00] VITALS: BP 145/91; PULSE 68; RESP 19; TEMP 97.9
[2024-08-03 20:00] VITALS: BP 155/86; PULSE 75; RESP 17; TEMP 97.6
[2024-08-03] MEDS: HYDROcodone/APAP 5/325 1 TAB TABLET PO PRN (20:10)
[2024-08-04] VITALS (7 sets, daily range): BP systolic 145–162; BP diastolic 74–95; PULSE 66–77; RESP 16–18; TEMP 97.3–99; O2SAT 100
--- NOTE | 2024-08-04 09:18 | NUR ---
Home medications were not available at bedside. Did not give them. Discussed with patient the importance of bringing then for continuity of care.
--- NOTE | 2024-08-04 09:40 | NUR ---
DC PLAN VISITED WITH PATIENT. SAID INSURANCE CALLED HIM AND SAID APPEAL DENIED. PATIENT SAID HE WANTS [facility]. SHERRIE SIGNED. INFO SENT TO DR. ZABALA TO ASK IF OKAY TO SEND REFERRAL. GAVE OKAY. PACKET MADE AND SENT. Addendum: 08/04/24 at 0945 by SAY WALTERS RN CM Amended: Links added.
[2024-08-04] MEDS: HYDROcodone/APAP 5/325 1 TAB TABLET PO PRN (10:44)
--- NOTE | 2024-08-04 11:30 | NUR ---
BLOOD GLUCOSE 137. NO INSULIN COVERAGE NEEDED AT THIS TIME.
--- NOTE | 2024-08-04 16:30 | NUR ---
BLOOD GLUCOSE 114. NO INSULIN COVERAGE NEEDED AT THIS TIME.
[2024-08-05] VITALS: BP 153/87; PULSE 73; RESP 18; TEMP 98.7
[2024-08-05 04:00] VITALS: BP 138/84; PULSE 67; RESP 18; TEMP 98.6
[2024-08-05 08:00] VITALS: BP 148/90; PULSE 79; RESP 19; TEMP 98
--- NOTE | 2024-08-05 11:30 | NUR ---
BLOOD GLUCOSE 171. NO INSULIN COVERAGE NEEDED AT THIS TIME.
[2024-08-05 12:09] VITALS: BP 157/86; PULSE 76; RESP 19; TEMP 98.3
--- NOTE | 2024-08-05 12:28 | DS ---
Discharge Summary Hospital Course Summary: The patient was admitted to the hospital postoperatively on 07/29/2024 after undergoing right total knee arthroplasty. They did well with routine postoperative pain control. They worked well with physical therapy. They developed some acute blood loss anemia but remained asymptomatic. The patient and his spouse were adamant about trying to get into [facility] rehab for inpatient rehab. After the insurance denied this they filed an appeal. Once the appeal was denied they agreed to work to set up senior care facility for discharge. The hospital course was otherwise uncomplicated. They were subsequently able to be discharged on postoperative day 7 once discharge arrangements were made with senior care facility. [employer] Manager(s): None Procedure(s): Right total knee arthroplasty, 07/29/2024 Assessment/Plan: ASSESSMENT: Postop day seven status post right total knee arthroplasty PLAN: See discharge instructions Discharge Instructions: Begin working with Physical therapy at home. Dressing may be removed 08/01/24 and left open to air. Showers ok allowing soap and water to run over the wound. Pat dry. Do not submerge wound in tub/pool. Do not apply ointments. Do not apply Betadine. Do not apply peroxide. Ice packs to decrease pain/swelling. Prescriptions have been sent to the pharmacy: *Sidney 5/325mg 1-2 tab every 6 hours as needed for severe pain. (please call for refills) Cyclobenzaprine 5mg 1 tab every 8 hours as needed for muscle spasm pain. Gabapentin 100mg 1 tab every 8 hours (may discontinue if drowsy). Colace 100mg 1 tab orally twice a day as needed for constipation. Aspirin 325mg for 30 days to prevent blood clots. Call for a follow-up appointment in 2-3 weeks at [facility]. Home Medications: Reported Medications Topiramate (Topiramate) 50 Mg Tablet, 1 TAB PO HS 07/24/24 Fluticasone/Umeclidin/Vilanter (Trelegy Ellipta 100-62.5-25) 100-62.5 Blst.w.dev, 1 PUFF PO DAILY 07/24/24 Olmesartan Medoxomil (Olmesartan Medoxomil) 40 Mg Tablet, 40 MG PO HS, TAB 04/03/23 Sucralfate (Sucralfate) 1 Gram Tablet, 1 GM PO BID for 30 Days, TAB 04/03/23 Metoprolol Tartrate (Metoprolol Tartrate) 25 Mg Tablet, 25 MG PO HS, TAB 04/03/23 Metformin HCl (Metformin HCl) 500 Mg Tablet, 500 MG PO HS, TAB 04/03/23 Cyclosporine (Restasis) 1 Each Droperette, 1 EACH OU BID, DROP 03/31/23 Meloxicam (Meloxicam) 7.5 Mg Tablet, 7.5 MG PO DAILY PRN for PAIN, TAB 03/31/23 Gabapentin (Gabapentin) 100 Mg Capsule, 100 MG PO TID, CAP 03/31/23 Pantoprazole Sodium (Pantoprazole Sodium) 40 Mg Tablet.dr, 40 MG PO HS, TAB 03/31/23 Linaclotide (Linzess) 290 Mcg Capsule, 290 MCG PO DAILY, CAP 03/31/23 Trazodone HCl (Trazodone HCl) 50 Mg Tablet, 50 MG PO HS, TAB 03/31/23 Atorvastatin Calcium (Atorvastatin Calcium) 10 Mg Tablet, 10 MG PO HS, TAB 03/31/23 Duloxetine HCl (Duloxetine HCl) 60 Mg Capsule.dr, 60 MG PO HS, CAP 03/31/23 MARIYA ZABALA MD Aug 05, 2024 12:28
[2024-08-05 15:07] VITALS: O2SAT 93
--- NOTE | 2024-08-05 15:36 | NUR ---
ELSA PLAN [facility] [phone] PACKET MADE AND SENT TO [facility]. LET CM DIRECTOR KNOW OF DELAY. PUSHED WITH INSURANCE RECEIVED AUTH. LET NURSE AND MD KNOW. PATIENT CAN GO VIA [facility]. RADHA PASRR TO BE SENT. Addendum: 08/05/24 at 1549 by SAY WALTERS RN CM Amended: Links added.
[2024-08-05] MEDS ORDERED: ASPI-1026 PO (15:42)
[2024-08-05] MEDS ORDERED: DOCU-116 PO (15:42)
[2024-08-05] MEDS ORDERED: CYCL-309 PO (15:42)
[2024-08-05] MEDS ORDERED: HYDR-4060 PO (15:42)
[2024-08-05 16:00] VITALS: BP 163/96; PULSE 77; RESP 19; TEMP 98.4
--- NOTE | 2024-08-05 16:00 | NUR ---
Called [facility], spoke to Mrs. Lani LIRAN, gave her report and notify her that patient needs Van pickup. She verbalized understanding.
--- NOTE | 2024-08-05 16:30 | NUR ---
BLOOD GLUCOSE 132. NO INSULIN COVERAGE NEEDED AT THIS TIME.
--- NOTE | 2024-08-05 16:45 | NUR ---
Did discharge orders as per Dr. Santos orders.
--- NOTE | 2024-08-05 18:30 | NUR ---
Called [facility], to aliyah when will patient be picked up. Spoke to and she verbalized patient will be picked up today.
--- NOTE | 2024-08-05 18:34 | NUR ---
Discontinued PIV. No signs of respiratory distress. Discussed Plan of care, follow up appoitments, home medication and pain management. Patient verbalized understanding. mason barnard picked up patient.
== END 2024-08-05 18:45 | DRG 470 ==
LOC: DAH 08:08 → DAHIP 08:09 → OBSVTOIN 08:09 → 4BH 14:45
PROVIDERS: ADMIT Student in an Organized Health Care Education/Training Program; ATTEND Student in an Organized Health Care Education/Training Program
PROC: 0SRC069 Replacement of Right Knee Joint with Oxidized Zirconium on Polyethylene Synthetic Substitute, Cemented, Open Approach (ICD-10-PCS; principal; 2024-07-29 10:13)
DX: M17.11 Unilateral primary osteoarthritis, right knee (principal); D62 Acute posthemorrhagic anemia; I10 Essential (primary) hypertension; E78.00 Pure hypercholesterolemia, unspecified; E11.9 Type 2 diabetes mellitus without complications; Z90.49 Acquired absence of other specified parts of digestive tract; Z79.899 Other long term (current) drug therapy; Z83.3 Family history of diabetes mellitus; Z82.49 Family history of ischemic heart disease and other diseases of the circulatory system
CPT/HCPCS: 36415; 73560; 80048; 82040; 82948; 84134; 85027; 86140; 87641; G0378; J1100; J1815; J1885; J2003; J2270; J2405; J2704; J2710; J2795; J3010; J3490; J7030; A4213; A4215; A4216; A4221; A4222; A4223; A4600; A4649; A4663; A4930; A6255; C1713; C1776; J0690